=== PATIENT | female | born 1955 | race Caucasian/White ===

== ENCOUNTER 2023-09-08 08:03 | Outpatient (CLI) | payer MEDICARE, SELFPAY ==
--- NOTE | ~2023-09-08 | XR_ITS ---
Clinical Indication: COPD, chest pain PA and lateral views of the chest: Comparison: None Findings: The lungs are clear, without evidence of focal consolidation or pleural effusion. Cardiome diastinal silhouette is within normal limits. Bones and soft tissues are unremarkable. Impression: Normal chest. Reviewed, dictated and finalized at [facility]. Impression: Normal chest.
[2023-09-08 08:49] LABS: Basophils Absolute Auto 0.1 K/mm3 (0.0-0.1); Basophils Percent Auto 0.9 % (0.2-1.2); Eosinophils Absolute Auto 0.2 K/mm3 (0-0.3); Eosinophils Percent Auto 2.7 % (0-4.4); Hematocrit 43.6 % (37.0-47.0); Hemoglobin 13.6 g/dL (12.0-15.0); Immature Granulocyte Absolute 0.02 K/mm3 (0.00-0.031); Immature Granulocyte Percent A 0.3 % (0-0.5); Lymphocytes Absolute Auto 1.92 K/mm3 (0.9-3.2); Lymphocytes Percent Auto 28.9 % (18.3-44.2); Mean Corpuscular HGB Conc 31.2 g/dl (32-36); Mean Corpuscular Hemoglobin 26.5 pg (26-34); Mean Corpuscular Volume 84.8 fl (80-100); Mean Platelet Volume 11.8 fl (7.4-10.4); Monocytes Absolute Auto 0.5 K/mm3 (0.1-0.6); Monocytes Percent Auto 7.7 % (2.6-8.5); Neutrophils Percent Auto 59.5 % (45.5-73.1); Platelet Count Result 234 k/mm3 (150-375); Red Blood Count 5.14 M/mm3 (4.2-5.4); Red Cell Distribution Width 13.2 % (11.5-14.5); White Blood Count 6.6 K/mm3 (4.5-10.0)
[2023-09-08 09:14] LABS: Alanine Aminotransferase 16 U/L (6-35); Albumin Level 4.5 g/dL (3.5-5.1); Alkaline Phosphatase 70 U/L (38-126); Anion Gap 8 mmol/L (4-12); Aspartate Amino Transferase 22 U/L (14-36); Bilirubin,Total 0.6 mg/dL (0.2-1.3); Blood Urea Nitrogen 17 mg/dL (7-17); Calcium 9.4 mg/dL (8.4-10.2); Carbon Dioxide 27 mmol/L (22-30); Chloride 107 mmol/L (98-107); Cholesterol 189 mg/dL (0-200); Estimated Glomerular Filt Rate > 60; Glucose 164 mg/dL (65-110); HDL Direct 40 mg/dL; Potassium 4.7 mmol/L (3.4-5.0); Sodium 142 mmol/L (137-145); Triglycerides 199 mg/dL (<150)
[2023-09-08 09:20] LABS: LDL Cholesterol Direct 122 mg/dL
[2023-09-08 09:23] LABS: Vitamin D 25 Hydroxy 23.9 ng/mL
[2023-09-08 10:19] LABS: Folic Acid 15.3 ng/mL (2.76->20)
== END 2023-09-08 08:04 | disposition home or self-care (01) ==
PROVIDERS: PCP Nurse Practitioner Adult Health; Visit Provider Nurse Practitioner Adult Health
DX: J44.9 Chronic obstructive pulmonary disease, unspecified (principal); E78.5 Hyperlipidemia, unspecified; R53.83 Other fatigue
CPT/HCPCS: 36415; 71046; 80053; 80061; 82306; 82607; 82746; 84443; 85025

== ENCOUNTER 2023-09-17 08:40 | Outpatient (CLI) | payer MEDICARE, SELFPAY ==
[2023-09-17 11:00] LABS: Hemoglobin A1C 7.4 % (<5.7)
== END 2023-09-17 08:41 | disposition home or self-care (01) ==
PROVIDERS: PCP Nurse Practitioner Adult Health; Visit Provider Nurse Practitioner Adult Health
DX: R73.9 Hyperglycemia, unspecified (principal)
CPT/HCPCS: 36415; 83036

== ENCOUNTER 2023-11-26 07:28 | Outpatient (CLI) | payer MEDICARE, SELFPAY ==
--- NOTE | 2023-11-26 07:30 | ECHO_ITS ---
Patient Info Name: Ree Jackson Age: 68 years : 1955 Gender: Female Ht: 62 in Wt: 165 lbs BSA: 1.84 m2 HR: 82 bpm BP: 154 / 84 mmHg Technical Quality: Fair Exam Date: 11/26/2023 7:40 AM Exam Location: Echo Lab Patient Status: Outpatient Admit Date: 11/26/2023 Staff Ordering Physician: Shilpa Covarrubias APRN State Archivist: Celeste Garner RDCS Attending Provider: Shilpa Covarrubias APRN Referring Physician: Satish HALL; Exam Type: CA echo doppler color flow Study Info Indications R06.02 - Shortness of breath Complete two-dimensional, color flow and Doppler transthoracic echocardiogram is performed. Summary 1. Complete two-dimensional, color flow and Doppler transthoracic echocardiogram is performed. 2. Left ventricular chamber dimension is normal. 3. Left ventricular systolic function is normal, estimated at 60-65%. 4. The left ventricular diastolic function is grade I diastolic dysfunction. 5. E/e' 17 is elevated. 6. Global longitudinal strain is abnormal at -15.3%. 7. Left atrial chamber dimension is mildly enlarged. 8. There is mild aortic valve sclerosis. 9. There is trace aortic valve regurgitation. 10. There is trace mitral valve regurgitation. 11. No pulmonary hypertension, estimated pulmonary arterial systolic pressure is 29 mmHg. 12. There is trivial pericardial effusion. Left Ventricle E/e' 17 is elevated. Global longitudinal strain is abnormal at -15.3%. Left ventricular chamber dimension is normal. Left ventricular systolic function is normal, estimated at 60-65%. The left ventricular diastolic function is grade I diastolic dysfunction. Right Ventricle Right ventricular systolic function is normal and with normal TAPSE 2.0 cm. Right ventricular chamber dimension is normal. Left Atria Left atrial chamber dimension is mildly enlarged. Right Atria Right atrial chamber dimension is normal. Aortic Valve The aortic valve is trileaflet. There is mild aortic valve sclerosis. There is no aortic valve stenosis. There is trace aortic valve regurgitation. Pulmonic Valve There is no pulmonic regurgitation. Mitral Valve There is no mitral valve stenosis. There is trace mitral valve regurgitation. Tricuspid Valve There is no tricuspid valve regurgitation. No pulmonary hypertension, estimated pulmonary arterial systolic pressure is 29 mmHg. Pericardium/Pleural There is trivial pericardial effusion. Inferior Vena Cava Normal inferior vena cava with >50% collapse upon inspiration consistent with normal right atrial pressure, 5 mmHg. Aorta The aortic root size at the sinus of Valsalva is normal. Left Ventricular Outflow Tract Name Value Normal LVOT 2D LVOT Diameter 2.0 cm LVOT Doppler LVOT Peak Gradient 4 mmHg LVOT Mean Gradient 2 mmHg LVOT VTI 23 cm LVOT VTI/AV VTI Ratio 0.7 LVOT Stroke Volume 73 ml LVOT CO 6.1 l/min LVOT CI 3.3 l/min/m2 Pulmonic Valve Name
--- NOTE | 2023-11-26 07:31 | EST_ITS ---
Patient Info Name: Ree Jackson Age: 68 years : 1955 Gender: Female Ht: 62 in Wt: 165 lbs BSA: 1.84 m2 HR: 81 bpm BP: 165 / 91 mmHg Exam Date: 11/26/2023 8:36 AM Exam Location: Echo Lab Patient Status: Outpatient Admit Date: 11/26/2023 Staff Ordering Physician: Shilpa Covarrubias APRN Attending Provider: Shilpa Covarrubias APRN Exercise Technologist: Willow Gaines [facility] Exercise Physician: Jeff Alvarado DO Exam Type: CA stress test treadmill Study Info A treadmill exercise stress test was performed. Summary 1. 1. Abnormal Johan exercise stress test for ischemic ST changes by ECG criteria. 2. 2. Reduced functional capacity, achieving 7 METs of workload. 3. 3. Baseline hypertension. 4. 4. Appropriate HR response to exercise. 5. 5. Appropriate HR recovery at 1 minute post exercise. 6. 6. No imaging with stress testing. 7. 7. Patient informed of the above results. Protocol: Johan Stress ECG Details Stage: REST Duration (min): 3 min : 21 sec Speed (mph): 0.0 Grade (%): 0 HR (bpm): 82 SBP (mmHg): --- DBP (mmHg): --- METS: --- Stage: REST Duration (min): 7 min : 20 sec Speed (mph): 0.0 Grade (%): 0 HR (bpm): 91 SBP (mmHg): 158 DBP (mmHg): 89 METS: --- Stage: STAGE 1 Duration (min): 1 min : 0 sec Speed (mph): 1.7 Grade (%): 10 HR (bpm): 102 SBP (mmHg): 158 DBP (mmHg): 89 METS: --- Stage: STAGE 1 Duration (min): 2 min : 0 sec Speed (mph): 1.7 Grade (%): 10 HR (bpm): 111 SBP (mmHg): 158 DBP (mmHg): 89 METS: --- Stage: STAGE 1 Duration (min): 3 min : 0 sec Speed (mph): 1.7 Grade (%): 10 HR (bpm): 118 SBP (mmHg): 205 DBP (mmHg): 90 METS: --- Stage: STAGE 2 Duration (min): 1 min : 0 sec Speed (mph): 2.5 Grade (%): 12 HR (bpm): 124 SBP (mmHg): 205 DBP (mmHg): 90 METS: --- Stage: STAGE 2 Duration (min): 2 min : 0 sec Speed (mph): 2.5 Grade (%): 12 HR (bpm): 129 SBP (mmHg): 174 DBP (mmHg): 85 METS: --- Stage: STAGE 2 Duration (min): 3 min : 0 sec Speed (mph): 2.5 Grade (%): 12 HR (bpm): 129 SBP (mmHg): 174 DBP (mmHg): 85 METS: --- Stage: STAGE 3 Duration (min): 0 min : 1 sec Speed (mph): 3.4 Grade (%): 14 HR (bpm): 129 SBP (mmHg): 174 DBP (mmHg): 85 METS: --- Stage: RECOVERY Duration (min): 0 min : 58 sec Speed (mph): 0.0 Grade (%): 0 HR (bpm): 122 SBP (mmHg): 167 DBP (mmHg): 72 METS: --- Stage: RECOVERY Duration (min): 1 min : 58 sec Speed (mph): 0.0 Grade (%): 0 HR (bpm): 107 SBP (mmHg): 167 DBP (mmHg): 72 METS: --- Stage: RECOVERY Duration (min): 2 min : 58 sec Speed (mph): 0.0 Grade (%): 0 HR (bpm): 100 SBP (mmHg): 184 DBP (mmHg): 78 METS: --- Stage: RECOVERY Duration (min): 3 min : 32 sec Speed (mph): 0.0 Grade (%): 0 HR (bpm): 94 SBP (mmHg): 184 DBP (mmHg): 78 METS: --- Rest HR:
--- NOTE | 2023-11-26 07:32 | ECG_ITS ---
Test Date: 2023-11-26 07:52:53 Measurements Intervals [place] Rate: 84 P: 38 NE: 187 QRS: 37 QRSD: 80 T: 53 QT: 381 QTc: 452 Interpretive Statements SINUS RHYTHM NONSPECIFIC T-WAVE ABNORMALITY BORDERLINE ECG No previous ECG available for comparison Electronically Signed On 11-26-2023 14:59:27 CDT by Malcolm Gonzalez M.D.
== END 2023-11-26 07:29 | disposition home or self-care (01) ==
LOC: ANHCARD 07:29
PROVIDERS: PCP Nurse Practitioner Adult Health; Visit Provider Nurse Practitioner Adult Health
DX: E78.5 Hyperlipidemia, unspecified (principal); R06.02 Shortness of breath; R07.89 Other chest pain; R94.31 Abnormal electrocardiogram [ECG] [EKG]
CPT/HCPCS: 93005; 93017; 93306

== ENCOUNTER 2023-12-30 09:00 | Outpatient (CLI) | payer MEDICARE, SELFPAY ==
--- NOTE | ~2023-12-30 | US_ITS ---
EXAMINATION: US arterial ankle brachial ind DATE: 12/30/2023 09:50 INDICATION: Peripheral vascular disease with claudication TECHNIQUE: Segmental pressures and plethysmographic and Doppler waveforms of the brachial and lower e xtremity arteries were obtained. COMPARISON: None. FINDINGS: Right and left brachial artery pressures of 137 mm Hg and 137 mm Hg, respectively, are concordant (no rmal difference <= 30 mmHg). The right ankle-brachial index (CHERYL) is 1.22 (normal >= 0.9-1.0). The right great toe-brachial index (TBI) is 0.64 (normal >= 0.65). Arterial Doppler waveforms are biphasic with brisk systolic upstrokes at both right posterior tibial and dorsalis pedis arteries. The left CHERYL is 1.14. The left TBI is 0.61. Arterial Doppler waveforms are biphasic with brisk systol ic upstrokes at both left posterior tibial and dorsalis pedis arteries. IMPRESSION: 1. Mild arterial occlusive disease to bilateral lower limbs with normal bilateral ABIs but mildly dec reased bilateral TBIs. Reviewed, dictated and finalized at location B. IMPRESSION: 1. Mild arterial occlusive disease to bilateral lower limbs with normal bilater al ABIs but mildly decreased bilateral TBIs.
--- NOTE | ~2023-12-30 | CT_ITS ---
EXAMINATION:CT lung screening DATE: 12/30/2023 09:49 INDICATION: Personal history of nicotine dependence. 60 pack year history. TECHNIQUE: Computed tomography (CT) of the chest was performed without intravenous contrast. Automate d exposure control and iterative reconstruction technique were employed. The dose-length product (DLP ) was 128.72 mGy-cm. COMPARISON: None. FINDINGS: The lungs demonstrate mild atelectasis. There are a few pulmonary nodules measuring up to 5 mm. There are juxtapleural nodules in left lung measuring up to 9 mm. No pleural effusion. The heart size is normal. There are coronary artery calcifications. No pericardial effusion. There is severe c ervical spondylosis and moderate thoracic spondylosis. IMPRESSION: 1. Lung-RADS category 2: Benign appearance or behavior. Continue annual screening with noncontrast lo w-dose chest CT in 12 months. Reviewed, dictated and finalized at location A. IMPRESSION: 1. Lung-RADS category 2: Benign appearance or behavior. Continue annual screeni ng with noncontrast low-dose chest CT in 12 months.
== END 2023-12-30 09:01 | disposition home or self-care (01) ==
PROVIDERS: PCP Nurse Practitioner Adult Health; Visit Provider Nurse Practitioner Adult Health
DX: Z87.891 Personal history of nicotine dependence (principal); I73.9 Peripheral vascular disease, unspecified; M79.661 Pain in right lower leg; M79.662 Pain in left lower leg; R20.0 Anesthesia of skin; R23.0 Cyanosis; R78.5 Finding of other psychotropic drug in blood; Z12.2 Encounter for screening for malignant neoplasm of respiratory organs
CPT/HCPCS: 71271; 93922

== ENCOUNTER 2024-01-17 00:22 | Day surgery (SDC) | payer MEDICARE, SELFPAY ==
[2024-01-14 14:30] VITALS: BMI 30.4
[2024-01-17] VITALS (17 sets, daily range): BP systolic 140–172; BP diastolic 57–123; PULSE 74–90; RESP 13–20; TEMP 36.5; O2SAT 94–99; BMI 29.9
[2024-01-17 07:41] LABS: Basophils Absolute Auto 0.1 K/mm3 (0.0-0.1); Basophils Percent Auto 0.8 % (0.2-1.2); Eosinophils Absolute Auto 0.2 K/mm3 (0-0.3); Eosinophils Percent Auto 2.6 % (0-4.4); Hematocrit 41.2 % (37.0-47.0); Hemoglobin 13.3 g/dL (12.0-15.0); Immature Granulocyte Absolute 0.05 K/mm3 (0.00-0.031); Immature Granulocyte Percent A 0.6 % (0-0.5); Lymphocytes Percent Auto 23.3 % (18.3-44.2); Mean Corpuscular HGB Conc 32.3 g/dl (32-36); Mean Corpuscular Hemoglobin 27.6 pg (26-34); Mean Corpuscular Volume 85.5 fl (80-100); Mean Platelet Volume 11.5 fl (7.4-10.4); Monocytes Absolute Auto 0.6 K/mm3 (0.1-0.6); Monocytes Percent Auto 7.8 % (2.6-8.5); Neutrophils Percent Auto 64.9 % (45.5-73.1); Platelet Count Result 225 k/mm3 (150-375); Red Blood Count 4.82 M/mm3 (4.2-5.4); White Blood Count 7.7 K/mm3 (4.5-10.0)
[2024-01-17 07:50] LABS: Anion Gap 11 mmol/L (4-12); Blood Urea Nitrogen 20 mg/dL (7-17); Calcium 9.4 mg/dL (8.4-10.2); Carbon Dioxide 25 mmol/L (22-30); Chloride 106 mmol/L (98-107); Estimated CRCL calculation 73 ml/min; Estimated Glomerular Filt Rate > 60; Glucose 141 mg/dL (65-110); Sodium 142 mmol/L (137-145)
--- NOTE | 2024-01-17 08:32 | WPDMODSED ---
Moderate Sedation Note-Pt Data Patient Data Allergies Allergy/AdvReac Type Severity Reaction Status Date / Time acetaminophen Allergy Unknown Unknown Verified 01/12/24 12:58 [From Darvocet-N] codeine Allergy Unknown Unknown Verified 01/12/24 12:58 pentazocine [From Talwin] Allergy Unknown Unknown Verified 01/12/24 12:58 propoxyphene Allergy Unknown Unknown Verified 01/12/24 12:58 [From Darvocet-N] Home Medications Medication Instructions Recorded Confirmed Type albuterol sulfate 90 mcg/actuation 2 inh inhalation Q4-6H PRN 09/01/23 01/14/24 History aerosol inhaler (Ventolin HFA) Shortness Of Breath lovastatin 40 mg tablet 40 mg PO DAILY #90 tabs 09/01/23 01/14/24 Rx montelukast 10 mg tablet 10 mg PO DAILY #90 tabs 09/01/23 01/14/24 Rx blood-glucose meter (Blood Glucose #1 ea 09/20/23 12/16/23 Rx Monitoring kit) blood sugar diagnostic (Blood #50 ea 09/22/23 12/16/23 Rx Glucose Test strips) lancets #100 ea 09/22/23 12/16/23 Rx aspirin 81 mg tablet,delayed 81 mg PO DAILY 12/16/23 01/14/24 History release lansoprazole 15 mg capsule,delayed 15 mg PO BID 01/12/24 01/14/24 History release magnesium 400 mg PO DAILY 01/12/24 01/14/24 History bupropion HCl 300 mg 24 hr tablet, 300 mg PO DAILY 01/14/24 01/14/24 History extended release metformin 500 mg tablet,extended 500 mg PO DAILY 01/14/24 01/14/24 History release 24 hr Current Medications: Active Medications Sodium Chloride (Normal Saline Iv) 500 mls @ 100 mls/hr IV CONT .Q5H KIMBERLY Sedation/Anesthesia: No previous sedation/anesthesia problems (including family history). [facility] Past Medical History Medical History (Updated 01/12/24 @ 13:19 by Shilpa Covarrubias APRN) Allergies Arthritis Asthma COPD (chronic obstructive pulmonary disease) Headache Migraine Family History Family History Father Asthma Lung cancer History of ETOH abuse Depression Mother Diabetes mellitus Hypertension Heart disease Rectal cancer Sibling History of ETOH abuse Diabetes mellitus Hypertension Social History Social History Smoking packs per day: 1 Smoking cigarettes per day: 20.0 Years smoked: 30 Smoking pack-years: 30.00 Smoking status: Former smoker Smoking end date: 04/19/03 Alcohol intake: former Alcohol use details: Wine Social Substance use: never Substance use type: does not use Do You Feel Safe in your Home?: Yes Lack of Transportation: No Lack of Food: Never True Current Housing: I Have Housing Concerned About Future Housing: No Difficulty Paying Gas/Electric Bills: No Difficulty Paying for Meds: No Currently Unemployed: No Education: High School Diploma/GED Difficulty w/ Childcare or Family Care: No Living arrangements: alone Occupation/Education: retired Gender identity (if verbalized by the patient): Female Spiritual care concerns: No Agree to blood products: Yes Mod Sed Physical Exam Physical Exam Pre Procedural Exam: Normal: Appearance, Airway, Lungs and Heart Rate Hours since solid foods: 12 Hours since liquid intake: 8 Mallampati Classification: class III Internal Medicine - PN: Obj Da Vital Signs Vital Signs: Vital Signs - 24 hr 01/17/24 07:32 Temperature 36.5 C Pulse Rate 84 Respiratory Rate 14 Blood Pressure 169/79 H Pulse Oximetry 97 Oxygen Delivery Room Air Meds/Results Medications: Active Medications Generic Name Dose Route Start Last Admin Trade Name Freq PRN Reason Stop Dose Admin Sodium Chloride 500 mls @ 100 mls/hr 01/17/24 07:00 Normal Saline Iv IV CONT .Q5H KIMBERLY Labs 01/17/24 07:28 01/17/24 07:28 Labs: Laboratory Results - last 24 hr 01/17/24 07:28 WBC 7.7 RBC 4.82 Hgb 13.3 Hct 41.2 MCV 85.5 MCH 27.6 MCHC 32.3 RDW 14.0 Plt Count 225 MPV 11.5 H
--- NOTE | 2024-01-17 08:32 | WPDCARDPROC ---
Cardiac Cath Procedure Note Date of procedure:: 01/17/24 Performing physician:: CATHETERIZATION LABORATORY REPORT Procedure Date: 01/16/2026 Referring Physician: Dr. Alvarado Anesthesia: Versed and Fentanyl were ordered and given in my presence at 857am, procedure ended at 946am. Supervision of nurse monitored moderate sedation with 2mg Versed and 100mcg Fentanyl was provided for 49 minutes. Pre-op Diagnosis: abnormal stress test Post-op Diagnosis: abnormal stress test Procedure(s): Left heart catheterization with coronary angiography Access Site: Right radial artery. Hemostasis with TR band Brief History and Clinical Indications: 68 yo woman with DM type 2, HLD, and early family history of CAD with intermittent chest pain found to have abnormal stress test now here for [facility]. All risks, benefits and alternatives to left heart catheterization with or without percutaneous coronary intervention was discussed at length with the patient. Risk of complications including but not limited to bleeding, infection, arrhythmia, stroke, worsening kidney function, blood loss, groin hematoma, limb loss, emergency coronary artery bypass grafting, and even were discussed with the patient and all questions were answered. The patient understood and wished to proceed. Time out called, patient name, date of , medical record number, allergies, procedure performed, identify Canopy Stringer, patient and staff member concurred with accurate data, procedure carried on. Findings: LEFT HEART CATHETERIZATION FINDINGS: 1. Left main: The left main coronary artery is widely patent without any significant obstructive disease. 2. Left anterior descending: The LAD provides 2 main diagonal branches that have mild luminal irregularities without any significant obstructive angiographic disease. The LAD wraps around the apex and distally, there is diffuse 50-60% stenosis 3. Left circumflex: The left circumflex artery provides 2 OM branches. OM1 has a 90% stenosis in its proximal body. OM2 has a 70% stenosis in its proximal to mid body. 4. Right coronary artery: The RCA has a subtotal occlusion in it's mid-body. It has left to right collaterals. The RCA is the dominant vessel. 5. Left ventricle: A. End-diastolic pressure 2 mmHg. B. LV gram deferred. C. No significant gradient across aortic valve on catheter pullback. Description of Procedure: Informed consent signed and placed in the chart. Patient transferred to school laboratory technician room. Prepped and draped in usual sterile fashion. 2% lidocaine injected subcutaneously in right wrist area. 22-gauge venipuncture catheter used to access the right radial artery with the Seldinger technique. 6-FR slender sheath placed in right radial artery. 200 mcg Nitroglycerin, 2mg Verapamil, 5000U heparin was given intraarterial through the sheath. J wire advanced under fluoroscopy 5Fr JL3.5 diagnostic catheter engaged Left Main Coronary Artery. 5Fr TIG diagnostic catheter engaged Right Coronary Artery Multiple orthogonal angiogram obtained and reviewed 5Fr Pigtail diagnostic catheter crossed aortic valve to obtain LVEDP, LV angiogram deferred. Procedure Description for PCI: Heparin was used for anticoagulation (ACT maintained above 250) Patient loaded with heparin at 70 units/kg. 6Fr CLS 3.0 Guide Catheter was used to engage the LMCA. 0.014 Samurai coronary wire was passed in to OM2 The lesion was pre-dilated with a 2.0 x 15 mm balloon inflated to nominal pressures A 2.5 mm x 34mm Jose Caldwell HUEY was successfully deployed into OM2 at 14atm The Samurai coronary wire was then passed into OM1 and the lesion was pre-dilated with a 2.5 x 10mm balloon inflated to 10atm A 2.5 x 15mm Jose Caldwell HUEY was successfully deployed into OM1 at 14atm Intracoronary NTG was administered Follow-up angiograms showed an excellent result Coronary wire and guide-catheter were removed Pre-procedure - ELISEO 3 flow Post-procedure - ELISEO 3 flow No
[2024-01-17 11:45] LABS: Activated Clotting Time 226 SEC (74-137)
[2024-01-17 11:45] LABS: Activated Clotting Time 263 SEC (74-137)
== END 2024-01-17 14:27 | disposition home or self-care (01) ==
PROVIDERS: PCP Nurse Practitioner Adult Health; Visit Provider Internal Medicine
PROC: 4A023N7 Measurement of Cardiac Sampling and Pressure, Left Heart, Percutaneous Approach (ICD-10-PCS; CPT 93452; principal; 2024-01-17 08:30)
PROC: (CPT 92928; 2024-01-17 08:30)
DX: I25.10 Atherosclerotic heart disease of native coronary artery without angina pectoris (principal); R94.39 Abnormal result of other cardiovascular function study; E11.9 Type 2 diabetes mellitus without complications; E78.5 Hyperlipidemia, unspecified; J44.9 Chronic obstructive pulmonary disease, unspecified; Z79.51 Long term (current) use of inhaled steroids; Z79.82 Long term (current) use of aspirin; Z79.84 Long term (current) use of oral hypoglycemic drugs; Z87.891 Personal history of nicotine dependence
CPT/HCPCS: 36415; 80048; 85025; 93458; A9270; C1725; C1769; C1874; C1887; C1894; C9600; C9601; J1644; J2250; J2305; J3010; J7040

== ENCOUNTER 2024-01-22 18:38 | Observation (INO) | payer MEDICARE, SELFPAY ==
[2024-01-22] VITALS (9 sets, daily range): BP systolic 135–140; BP diastolic 67–74; PULSE 94–105; RESP 16–19; TEMP 36.5–36.8; O2SAT 96–98; BMI 29.5
--- NOTE | ~2024-01-22 | XR_ITS ---
EXAMINATION: XR chest 2V Exam Date/Time: 01/22/2024 19:14 CDT HISTORY: cp Comparison: 09/08/2023. RESULT: Lines, tubes, and devices: None. Lungs and pleura: Clear. Cardiomediastinal silhouette: Stable. Other: No acute osseous or upper abdominal finding. IMPRESSION: No acute cardiopulmonary process. Reviewed, dictated and finalized at location K.
--- NOTE | 2024-01-22 18:39 | ECG_ITS ---
Test Date: 2024-01-22 18:51:46 Measurements Intervals [place] Rate: 100 P: 43 FL: 167 QRS: 29 QRSD: 92 T: 73 QT: 364 QTc: 470 Interpretive Statements SINUS TACHYCARDIA POSSIBLE LEFT ATRIAL ENLARGEMENT [-0.1mV P WAVE IN V1/V2] NONSPECIFIC ST & T-WAVE ABNORMALITY ABNORMAL RHYTHM ECG Compared to ECG 11/26/2023 07:52:53 Sinus rhythm no longer present T-wave abnormality still present Electronically Signed On 01-23-2024 11:31:24 CDT by Germán Navarro M.D.
[2024-01-22 19:03] LABS: Basophils Percent Auto 0.3 % (0.2-1.2); Eosinophils Absolute Auto 0.1 K/mm3 (0-0.3); Hematocrit 43.7 % (37.0-47.0); Hemoglobin 14.4 g/dL (12.0-15.0); Immature Granulocyte Absolute 0.07 K/mm3 (0.00-0.031); Immature Granulocyte Percent A 0.5 % (0-0.5); Lymphocytes Absolute Auto 1.98 K/mm3 (0.9-3.2); Lymphocytes Percent Auto 14.4 % (18.3-44.2); Mean Corpuscular Hemoglobin 27.7 pg (26-34); Mean Corpuscular Volume 84.2 fl (80-100); Mean Platelet Volume 12.3 fl (7.4-10.4); Monocytes Absolute Auto 0.9 K/mm3 (0.1-0.6); Monocytes Percent Auto 6.3 % (2.6-8.5); Neutrophils Absolute Auto 10.7 K/mm3 (1.3-6.7); Neutrophils Percent Auto 77.5 % (45.5-73.1); Platelet Count Result 269 k/mm3 (150-375); Red Blood Count 5.19 M/mm3 (4.2-5.4); Red Cell Distribution Width 13.5 % (11.5-14.5); White Blood Count 13.8 K/mm3 (4.5-10.0)
--- NOTE | 2024-01-22 19:03 | ED.CHESTPAIN ---
HPI - Chest Pain General Chief Complaint: Chest Pain Stated Complaint: chest pain Time Seen by Provider: 01/22/24 18:49 History of Present Illness HPI narrative: Patient presents here with chest pain that started today, with some slight nausea, initially thought it was heartburn but did not get better after her medications. Had recent catheterization done several days ago, saw her senior functional analyst yesterday and was started on losartan, and started having chest pain today. Related Data Home Medications Medication Instructions Recorded Confirmed albuterol sulfate 90 mcg/actuation 2 inh inhalation Q4-6H PRN 09/01/23 01/21/24 aerosol inhaler (Ventolin HFA) Shortness Of Breath aspirin 81 mg tablet,delayed 81 mg PO DAILY 12/16/23 01/21/24 release lansoprazole 15 mg capsule,delayed 15 mg PO BID 01/12/24 01/21/24 release magnesium 400 mg PO DAILY 01/12/24 01/21/24 bupropion HCl 300 mg 24 hr tablet, 300 mg PO DAILY 01/14/24 01/21/24 extended release metformin 500 mg tablet,extended 500 mg PO DAILY 01/14/24 01/21/24 release 24 hr Allergies Allergy/AdvReac Type Severity Reaction Status Date / Time acetaminophen Allergy Unknown Unknown Verified 01/21/24 09:35 [From Darvocet-N] codeine Allergy Unknown Unknown Verified 01/21/24 09:35 pentazocine [From Talwin] Allergy Unknown Unknown Verified 01/21/24 09:35 propoxyphene Allergy Unknown Unknown Verified 01/21/24 09:35 [From Darvocet-N] [facility] Past Medical History Medical History (Updated 01/22/24 @ 19:44 by Aretha Rebollar MD) Allergies Arthritis Asthma COPD (chronic obstructive pulmonary disease) Headache Migraine Family History Family History Father Asthma Lung cancer History of ETOH abuse Depression Mother Diabetes mellitus Hypertension Heart disease Rectal cancer Sibling History of ETOH abuse Diabetes mellitus Hypertension Social History Social History Smoking packs per day: 1 Smoking cigarettes per day: 20.0 Years smoked: 30 Smoking pack-years: 30.00 Smoking status: Former smoker Smoking end date: 01/01/04 Alcohol intake: former Alcohol use details: Wine Social Substance use: never Substance use type: does not use Do You Feel Safe in your Home?: Yes Lack of Transportation: No Lack of Food: Never True Current Housing: I Have Housing Concerned About Future Housing: No Difficulty Paying Gas/Electric Bills: No Difficulty Paying for Meds: No Currently Unemployed: No Education: High School Diploma/GED Difficulty w/ Childcare or Family Care: No Living arrangements: alone Occupation/Education: retired Gender identity (if verbalized by the patient): Female Spiritual care concerns: No Agree to blood products: Yes Exam Narrative: EXAMINATION OF ORGAN SYSTEMS/BODY AREAS: Constitutional: Vital signs per nursing GENERAL: Appears slightly anxious HEAD: Normal with no signs of head trauma. EYES: EOMI, conjunctiva normal ENT: Hearing grossly intact LUNGS: Nonlabored breathing. HEART: Slightly tachycardic, normal radial and DP pulses ABD: [Soft], [nontender to palpation] EXT: Normal range of motion SKIN: [No rashes or lesions.] NEURO: [Alert and oriented x 3. No gross focal sensory or strength deficits.] PSYCH: Slightly anxious affect Course Vital Signs Vital signs: Vital Signs Temperature 98.2 F 01/22/24 19:09 Pulse Rate 102 H 01/22/24 19:09 Respiratory Rate 19 01/22/24 19:09 Blood Pressure 137/67 01/22/24 19:09 Pulse Oximetry 97 01/22/24 19:09 Oxygen Delivery Room Air 01/22/24 19:09 Fraction of Inspired Oxygen 97 01/22/24 19:09 Temperature 98.2 F 01/22/24 19:09 Pulse Rate 102 H 01/22/24 19:09 Respiratory Rate 19 01/22/24 19:09 Blood Pressure 137/67 01/22/24 19:09 Pulse Oximetry 97 01/22/24 19:09 Oxygen Delivery
[2024-01-22 19:14] LABS: Prothrombin Time 13.6 Seconds (11.1-14.7)
[2024-01-22 19:15] LABS: Partial Thromboplastin Time 24.9 Seconds (22.3-36.8)
[2024-01-22] MEDS: LORazepam INJ (*CRX) 2 MG/ML VIAL 0.5 MG IV PUSH (19:30)
[2024-01-22] MEDS: ASPIRIN 81 MG CHEWABLE TABLET 243 MG PO (19:32)
--- NOTE | 2024-01-22 19:43 | PM.IMHP ---
H&P: HPI History of Present Illness Date/Time: 01/22/24 19:43 Chief Complaint: Chest pain Narrative: This is a 68-year-old female with past medical history significant for coronary artery disease, type diabetes mellitus, COPD. patient presents to the emergency room due to retrosternal chest pain with lightheadedness, dizziness, rates the pain at 3/10 in intensity at the time of my visit it is nonradiating. Patient denies any fevers, chills, nausea, vomiting, body aches and pains, palpitations. States that pain started the night before after she took her losartan. preliminary workup was significant for troponin of 2.7/2.77 x2 EXAMINATION: XR chest 2V Exam Date/Time: 01/22/2024 19:14 CDT HISTORY: cp Comparison: 09/08/2023. RESULT: Lines, tubes, and devices: None. Lungs and pleura: Clear. Cardiomediastinal silhouette: Stable. Other: No acute osseous or upper abdominal finding. IMPRESSION: No acute cardiopulmonary process. EKG Rate 100 OK 167 QRSd 92 QT 364 QTc 470 --[place]-- P 43 QRS 29 T 73 SINUS TACHYCARDIA POSSIBLE LEFT ATRIAL ENLARGEMENT [-0.1mV P WAVE IN V1/V2] NONSPECIFIC ST & T-WAVE ABNORMALITY ABNORMAL RHYTHM ECG Compared to ECG 11/26/2023 07:52:53 Sinus rhythm no longer present T-wave abnormality still present [facility] Past Medical History Medical History (Updated 01/22/24 @ 19:44 by Aretha Rebollar MD) Allergies Arthritis Asthma COPD (chronic obstructive pulmonary disease) Headache Migraine Family History Family History Father Depression Lung cancer History of ETOH abuse Asthma Mother Alzheimer dementia Rectal cancer Diabetes mellitus Heart disease Hypertension Sibling Diabetes mellitus History of ETOH abuse Hypertension Sibling Heart disease Hx of CABG Brother Sibling Stented coronary artery x9 stents. Heart disease Brother Social History Social History Smoking packs per day: 1 Smoking cigarettes per day: 20.0 Years smoked: 30 Smoking pack-years: 30.00 Smoking status: Former smoker Smoking end date: 04/19/03 Alcohol intake: former Alcohol use details: Wine Social Substance use: never Substance use type: does not use Do You Feel Safe in your Home?: Yes Lack of Transportation: No Lack of Food: Never True Current Housing: I Have Housing Concerned About Future Housing: No Difficulty Paying Gas/Electric Bills: No Difficulty Paying for Meds: No Currently Unemployed: No Education: High School Diploma/GED Difficulty w/ Childcare or Family Care: No Living arrangements: alone Occupation/Education: retired Gender identity (if verbalized by the patient): Female Spiritual care concerns: No Agree to blood products: Yes Meds Home Medications and Allergies Home Medications Medication Instructions Recorded Confirmed Type albuterol sulfate 90 mcg/actuation 2 inh inhalation Q4-6H PRN 09/01/23 01/22/24 History aerosol inhaler (Ventolin HFA) Shortness Of Breath blood-glucose meter (Blood Glucose #1 ea 09/20/23 01/22/24 Rx Monitoring kit) blood sugar diagnostic (Blood #50 ea 09/22/23 01/22/24 Rx Glucose Test strips) lancets #100 ea 09/22/23 01/22/24 Rx aspirin 81 mg tablet,delayed 81 mg PO DAILY 12/16/23 01/22/24 History release lansoprazole 15 mg capsule,delayed 15 mg PO BID 01/12/24 01/22/24 History release magnesium 400 mg PO DAILY 01/12/24 01/22/24 History bupropion HCl 300 mg 24 hr tablet, 300 mg PO DAILY 01/14/24 01/22/24 History extended release metformin 500 mg tablet,extended 500 mg PO HS 01/14/24 01/22/24 History release 24 hr clopidogrel 75 mg tablet 75 mg PO DAILY #90 tabs 01/17/24 01/22/24 Rx Tumeric 1,500 mg PO DAILY 01/22/24 01/22/24 History losartan 25 mg tablet 25 mg PO 01/22/24 01/22/24
[2024-01-22 19:55] LABS: Alanine Aminotransferase 17 U/L (6-35); Albumin Level 4.2 g/dL (3.5-5.1); Alkaline Phosphatase 57 U/L (38-126); Anion Gap 10 mmol/L (4-12); Aspartate Amino Transferase 52 U/L (14-36); Bilirubin,Total 0.4 mg/dL (0.2-1.3); Blood Urea Nitrogen 16 mg/dL (7-17); Calcium 9.1 mg/dL (8.4-10.2); Carbon Dioxide 24 mmol/L (22-30); Chloride 102 mmol/L (98-107); Estimated Glomerular Filt Rate > 60; Glucose 239 mg/dL (65-110); Lipase 73 U/L (23-300); Potassium 3.9 mmol/L (3.4-5.0); Sodium 136 mmol/L (137-145)
--- NOTE | 2024-01-22 20:56 | PC.NURSE ---
pepcid not stocked in the pyxis at time of medication due. called IMU to call report. Nurse unavailable to take report, let them know that the patient was coming up and if they had any questions to call the ER with them.
--- NOTE | 2024-01-22 21:45 | ADMGEN ---
This patient, Ree Jackson, was admitted to IMU Room 211-01 on 01/22/24 at 2106. Patient/family oriented to hospital policies and general routines including ID bracelet, bed and alarms, visiting hours, pain management, procedures, bathroom and other care routines, personal items, smoking policy, room service/diet, and visiting hours. Information on how to activate the Rapid Response Team has been discussed. Patient/Family are encouraged to report perceived risks to care and to ask questions if they do not understand what they are told or what they should do.
[2024-01-22] MEDS: FAMOTIDINE 20 MG/2 ML VIAL IV PUSH (22:16)
[2024-01-22 23:32] LABS: Basophils Absolute Auto 0.1 K/mm3 (0.0-0.1); Basophils Percent Auto 0.5 % (0.2-1.2); Eosinophils Absolute Auto 0.1 K/mm3 (0-0.3); Hematocrit 41.8 % (37.0-47.0); Hemoglobin 13.4 g/dL (12.0-15.0); Immature Granulocyte Absolute 0.03 K/mm3 (0.00-0.031); Immature Granulocyte Percent A 0.3 % (0-0.5); Lymphocytes Absolute Auto 2.06 K/mm3 (0.9-3.2); Lymphocytes Percent Auto 20.9 % (18.3-44.2); Mean Corpuscular HGB Conc 32.1 g/dl (32-36); Mean Corpuscular Hemoglobin 27.1 pg (26-34); Mean Corpuscular Volume 84.6 fl (80-100); Mean Platelet Volume 11.7 fl (7.4-10.4); Monocytes Absolute Auto 0.8 K/mm3 (0.1-0.6); Monocytes Percent Auto 8.1 % (2.6-8.5); Neutrophils Absolute Auto 6.8 K/mm3 (1.3-6.7); Neutrophils Percent Auto 69.2 % (45.5-73.1); Platelet Count Result 235 k/mm3 (150-375); Red Blood Count 4.94 M/mm3 (4.2-5.4); Red Cell Distribution Width 13.7 % (11.5-14.5); White Blood Count 9.9 K/mm3 (4.5-10.0)
[2024-01-22] MEDS: LOSARTAN POTASSIUM 25 MG TABLET PO (23:32)
[2024-01-22] MEDS: MONTELUKAST SODIUM 10 MG TABLET PO (23:32)
[2024-01-22] MEDS: LOVASTATIN 20 MG TABLET 40 MG PO (23:33)
[2024-01-22] MEDS: HEPARIN SOD/D5W 100 UNITS/ML 25,000 UNITS/250 ML BAG 7 UNITS IV CONT (23:40)
[2024-01-22 23:43] LABS: Prothrombin Time 13.9 Seconds (11.1-14.7)
[2024-01-22 23:44] LABS: Partial Thromboplastin Time 25.2 Seconds (22.3-36.8)
[2024-01-23] VITALS (24 sets, daily range): BP systolic 99–135; BP diastolic 49–68; PULSE 80–93; RESP 14–19; TEMP 36.3–37; O2SAT 96–100
--- NOTE | 2024-01-23 04:58 | ECG_ITS ---
Test Date: 2024-01-23 05:05:39 Measurements Intervals [place] Rate: 88 P: 44 MD: 183 QRS: 37 QRSD: 84 T: 61 QT: 380 QTc: 461 Interpretive Statements SINUS RHYTHM POSSIBLE LEFT ATRIAL ENLARGEMENT [-0.1mV P WAVE IN V1/V2] NONSPECIFIC T-WAVE ABNORMALITY Compared to ECG 01/22/2024 18:51:46 Sinus tachycardia no longer present T-wave abnormality still present Electronically Signed On 01-23-2024 11:34:54 CDT by Germán Navarro M.D.
[2024-01-23] MEDS: NITROGLYCERIN SL 0.4 MG TABLET SUBLINGUAL (05:32)
[2024-01-23 05:43] LABS: Basophils Absolute Auto 0.1 K/mm3 (0.0-0.1); Basophils Percent Auto 0.5 % (0.2-1.2); Eosinophils Absolute Auto 0.1 K/mm3 (0-0.3); Eosinophils Percent Auto 1.2 % (0-4.4); Hematocrit 40.7 % (37.0-47.0); Hemoglobin 13.1 g/dL (12.0-15.0); Immature Granulocyte Absolute 0.05 K/mm3 (0.00-0.031); Immature Granulocyte Percent A 0.5 % (0-0.5); Lymphocytes Absolute Auto 1.54 K/mm3 (0.9-3.2); Lymphocytes Percent Auto 16.5 % (18.3-44.2); Mean Corpuscular HGB Conc 32.2 g/dl (32-36); Mean Corpuscular Hemoglobin 27.8 pg (26-34); Mean Corpuscular Volume 86.4 fl (80-100); Mean Platelet Volume 11.9 fl (7.4-10.4); Monocytes Absolute Auto 0.8 K/mm3 (0.1-0.6); Monocytes Percent Auto 8.1 % (2.6-8.5); Neutrophils Absolute Auto 6.8 K/mm3 (1.3-6.7); Neutrophils Percent Auto 73.2 % (45.5-73.1); Platelet Count Result 231 k/mm3 (150-375); Red Blood Count 4.71 M/mm3 (4.2-5.4); Red Cell Distribution Width 13.6 % (11.5-14.5); White Blood Count 9.3 K/mm3 (4.5-10.0)
[2024-01-23 05:51] LABS: Partial Thromboplastin Time 31.5 Seconds (22.3-36.8)
--- NOTE | 2024-01-23 06:02 | PC.NURSE ---
01/23/24 at 0452- Pt has C/O 4/10 intermittent midsternal chest pressure radiating into her right jaw with no other associated Sx's. VSS: HR-84, RR-18, SPO2-97%, BP-135/68. Pt states that she was not doing anything to precipitate the event prior to the start of the chest pressure. Stat EKG ordered and obtained. EKG placed in Pt's chart. 0530- Pt states that the pain has eased up some and is intermittent in nature, ranging pain a 3/10. 0532- x1 dose of SL NTG tablet given to the patient as per orders. 0536-Pt states that her midsternal chest pressure has completely resolved after the NTG. VS remain stable. HR-92, RR-20, SPO2-98%, BP-127/63. Pt instructed to notify staff of any returning or ongoing chest pain. 0550-Dr. Alvarado notified and updated with the patient's condition and interventions completed. No further orders received at this time. Dr. Alvarado states that he will be here to see the patient in the AM.
[2024-01-23] MEDS: HEPARIN SODIUM 5,000 UNITS/ML VIAL 4000 UNITS IV PUSH ×2 (06:52→13:22)
--- NOTE | 2024-01-23 07:09 | PM.CNCAR ---
Assessment and Plan Assessment and plan (1) Chest pain: Code(s): R07.9 - Chest pain, unspecified Status: Acute Assessment and Plan: Probably due to RCA subtotal with left to right collaterals. EKG does not show significant ST changes. On heparin drip, continue for next 24 hours since troponin stuttering. Start antianginals including Isosorbide mononitrate 30 mg daily, Metoprolol Succinate 25 mg daily. If troponin trending down by tomorrow and cp improved then will d/c home. If recurrent cp on antianginals then will refer to tertiary center for high risk PCI of RCA. (2) Elevated troponin: Code(s): R79.89 - Other specified abnormal findings of blood chemistry Status: Acute Assessment and Plan: Initial troponin 2.70, then 2.77, the 2.69. This could be due to 2 stents placed in OM1 and OM2 on 01/17/24. (3) CAD (coronary artery disease): Code(s): I25.10 - Atherosclerotic heart disease of [place] coronary artery without angina pectoris Status: Acute Assessment and Plan: Continue dual antiplatelets. (4) Hypertension: Code(s): I10 - Essential (primary) hypertension Status: Acute Assessment and Plan: Stable. Monitor BP with new medication. (5) Dyslipidemia: Code(s): E78.5 - Hyperlipidemia, unspecified Status: Acute Assessment and Plan: On Lovastatin. History of Present Illness History of Present Illness Consult date/time: 01/23/24 07:09 Reason For Visit: chest pain, +trop Narrative: 68 yr old woman who is my regular cardiology patient presents to ER with chest pain. She is a patient of Shilpa Covarrubias. She has a history of CAD, DM, dyslipidemia, COPD, anxiety, former remote smoking, family history of a brother with CABG and another brother with CAD with stents. She reports mid chest pressure radiating to her back and jaw intermittently. [place] night before it was 8/10 and she took NTG and it took pain away, so she decided to come to ER. Early this morning pain was 4/10, and NTG SL took pain away. She is able to walk 2 blocks prior to [place]. Denies orthopnea, PND, edema, dizziness, palpitations. Cardiovascular Procedures Business Office Associate:: 01/17/24 [facility] with Dr. Lima: LAD diffuse 50-60%, LCx OM1 90% prox, OM2 70% prox-mid ,RCA mid subtotal occlusion with left to right collaterals; PCI to OM1 and OM2. Echo/MUGA:: 11/26/23 Echo: EF 60-65%, grade I diastolic dysfunction (E/e' 17), mild LAE, trace AI/MR, trace pericardial effusion. Electrophysiology:: 11/26/23 EKG: Sinus rhythm, borderline T wave abnormality. Stress Tests:: 11/26/23 Stress test: Abnormal with 1-[address] depression in leads V4-V6 and inferior leads; exercised for 6 minutes. Review of Systems Review of Systems: All systems reviewed & are unremarkable except as noted in HPI and below Constitutional: Constitutional: Reports as per HPI, Denies chills and Denies fever(s) Cardiovascular: Cardiovascular: Reports as per HPI and Reports chest pain Respiratory: Respiratory: Reports as per HPI and Denies dyspnea Gastrointestinal: Gastrointestinal: Reports as per HPI and Denies abdominal pain Genitourinary: Genitourinary: Reports as per HPI and Denies dysuria Musculoskeletal: Musculoskeletal: Reports as per HPI Neurologic: Reports as per HPI, Denies dizziness and Denies syncope [facility] Past Medical History Medical History (Updated 01/22/24 @ 19:44 by Aretha Rebollar MD) Allergies Arthritis Asthma COPD (chronic obstructive pulmonary disease) Headache Migraine Family History Family History Father Depression Lung cancer History of ETOH abuse Asthma Mother Alzheimer dementia Rectal cancer Diabetes mellitus Heart disease Hypertension Sibling Diabetes mellitus History of ETOH abuse Hypertension Sibling Heart disease Hx of CABG Brother Sibling Stented coronary artery
[2024-01-23 07:44] LABS: Glucose Point of Care 151 mg/dl (65-105)
[2024-01-23] MEDS: ASPIRIN 81 MG ENTERIC TABLET PO (08:13)
[2024-01-23] MEDS: CLOPIDOGREL BISULFATE 75 MG TABLET PO (08:14)
[2024-01-23] MEDS: METOPROLOL SUCCINATE EXT REL 25 MG TABCR PO (08:14)
[2024-01-23] MEDS: PANTOPRAZOLE 40 MG TABLET PO ×2 (08:14→17:18)
[2024-01-23] MEDS: buPROPion HCL XL (24 HR) 150 MG TABCR 300 MG PO (08:14)
[2024-01-23] MEDS: ISOSORBIDE MONONITRATE 30 MG TAB.ER.24H PO (08:28)
[2024-01-23 11:25] LABS: Glucose Point of Care 226 mg/dl (65-105)
--- NOTE | 2024-01-23 11:27 | PM.IMPN ---
Progress Note: A&P Assessment and Plan (1) Elevated troponin: Code(s): R79.89 - Other specified abnormal findings of blood chemistry Status: Acute (2) Hypertension: Code(s): I10 - Essential (primary) hypertension Status: Acute (3) CAD (coronary artery disease): Code(s): I25.10 - Atherosclerotic heart disease of [place] coronary artery without angina pectoris Status: Acute (4) Chest pain: Code(s): R07.9 - Chest pain, unspecified Status: Acute (5) Diabetes mellitus: Code(s): E11.9 - Type 2 diabetes mellitus without complications Status: Acute (6) COPD (chronic obstructive pulmonary disease): Code(s): J44.9 - Chronic obstructive pulmonary disease, unspecified Status: Acute (7) Asthma: Code(s): J45.909 - Unspecified asthma, uncomplicated Status: Acute Plan This is a 68-year-old female who presented to the ER with chest pain slight nausea. She recently had a catheterization done/ with PCI of OM1 and OM2 vessels with HUEY. OM1 had 90% stenosis wound to 70% stenosis. RCA has subtotal occlusion in the mid body with [id number] collaterals. In the ED her vitals were stable. EKG showed sinus tachycardia with some Q-waves in inferior leads which were present previously. S x-ray with no acute abnormality. Troponin came back elevated at 2.7 WBC count 13.8 hemoglobin 14 hematocrit 43 platelet count 269. She has been started on heparin drip. Troponin trended. 2.7-2.7 7-2.69. Cardiology consulted. Continue to trend troponin. Anti angina he holman isosorbide mononitrate started. He attempted to high-risk PCI RCA still persistent. Hyperlipidemia: On lovastatin Hypertension: Home medication DVT prophylax on heparin drip Subjective Date/time seen: 01/23/24 11:27 Interval history: No overnight events. No further chest pain denies any shortness of breath. Review of Systems Review of Systems: All systems reviewed & are unremarkable except as noted in HPI and below Exam Narrative: GENERAL: The patient is well developed, not in acute distress HEENT: Nonicteric sclerae, PERRLA, EOMI. Oropharynx clear. Moist mucous membranes. Conjunctivae appear well perfused. CHEST: Chest wall is nontender. HEART: Regular rate and rhythm without murmur, rubs, or gallops LUNGS: Clear to auscultation bilaterally. no respiratory distress ABDOMEN: Soft, positive bowel sounds, non-tender, no organomegaly. SKIN: No rash, no excessive bruising, petechiae, or purpura. NEUROLOGIC: Cranial nerves II-XII intact, alert and oriented x 3, no gross motor deficits EXTREMITIES: no edema, cyanosis or clubbing Objective Data Vital Signs Vital Signs: Vital Signs - 24 hr 01/22/24 19:09 01/22/24 19:09 01/22/24 21:01 Temperature 98.2 F Pulse Rate 102 H 101 H Respiratory Rate 19 18 Blood Pressure 137/67 137/71 Pulse Oximetry 97 97 Oxygen Delivery Room Air Room Air Oxygen Flow Rate Fraction of Inspired Oxygen 97 01/22/24 20:00 01/22/24 19:00 01/22/24 21:22 Temperature 97.7 F Pulse Rate 105 H 105 H 102 H Respiratory Rate 18 19 18 Blood Pressure 135/74 137/67 140/72 Pulse Oximetry 96 98 97 Oxygen Delivery Oxygen Flow Rate Fraction of Inspired Oxygen 01/23/24 00:01 01/22/24 21:21 01/22/24 22:00 Temperature 97.7 F Pulse Rate 93 99 103 H Respiratory Rate 18 Blood Pressure 118/61 Pulse Oximetry 96 Oxygen Delivery Oxygen Flow Rate Fraction of Inspired Oxygen 01/23/24 00:00 01/23/24 02:00 01/23/24 00:00 Temperature Pulse Rate 92 84 93 Respiratory Rate 18 Blood Pressure Pulse Oximetry 96 Oxygen Delivery Nasal Cannula Oxygen Flow Rate 4 Fraction of Inspired Oxygen 01/22/24 21:15 01/22/24 23:20 01/23/24 05:13 Temperature 97.4 F L Pulse Rate 102 H 94 84 Respiratory Rate 18 16 18 Blood Pressure 135/68 Pulse Oximetry 97 98 97 Oxygen Delivery Room Air Nasal Cannula Oxygen Flow Rat
[2024-01-23] MEDS: INSULIN ASPART (*BKC) 100 UNITS/ML SUB-Q (11:54)
[2024-01-23 13:11] LABS: Partial Thromboplastin Time 46.7 Seconds (22.3-36.8)
--- NOTE | 2024-01-23 15:25 | PC.NURSE ---
Reviewed and acknowledge charting rByan Lawton [facility]
[2024-01-23 17:00] LABS: Glucose Point of Care 127 mg/dl (65-105)
[2024-01-23 19:25] LABS: Partial Thromboplastin Time 83.4 Seconds (22.3-36.8)
[2024-01-23 20:28] LABS: Glucose Point of Care 156 mg/dl (65-105)
[2024-01-23] MEDS: LOSARTAN POTASSIUM 25 MG TABLET PO (21:38)
[2024-01-23] MEDS: MONTELUKAST SODIUM 10 MG TABLET PO (21:38)
[2024-01-23] MEDS: LOVASTATIN 20 MG TABLET 40 MG PO (21:38)
[2024-01-23] MEDS: ACETAMINOPHEN 325 MG TABLET 650 MG PO (21:39)
[2024-01-24] VITALS (10 sets, daily range): BP systolic 107–123; BP diastolic 56–60; PULSE 76–88; RESP 16–20; TEMP 36.3–36.8; O2SAT 96–100; BMI 28.8
[2024-01-24 01:21] LABS: Partial Thromboplastin Time 70.1 Seconds (22.3-36.8)
[2024-01-24] MEDS: HEPARIN SOD/D5W 100 UNITS/ML 25,000 UNITS/250 ML BAG 11 UNITS IV CONT (01:33)
[2024-01-24] MEDS: HEPARIN SODIUM 5,000 UNITS/ML VIAL 2500 UNITS IV PUSH (01:34)
[2024-01-24 05:21] LABS: Basophils Absolute Auto 0.1 K/mm3 (0.0-0.1); Basophils Percent Auto 0.7 % (0.2-1.2); Eosinophils Absolute Auto 0.2 K/mm3 (0-0.3); Eosinophils Percent Auto 1.5 % (0-4.4); Hematocrit 38.3 % (37.0-47.0); Hemoglobin 12.2 g/dL (12.0-15.0); Immature Granulocyte Absolute 0.05 K/mm3 (0.00-0.031); Immature Granulocyte Percent A 0.5 % (0-0.5); Lymphocytes Absolute Auto 2.19 K/mm3 (0.9-3.2); Mean Corpuscular HGB Conc 31.9 g/dl (32-36); Mean Corpuscular Hemoglobin 27.2 pg (26-34); Mean Corpuscular Volume 85.5 fl (80-100); Mean Platelet Volume 11.8 fl (7.4-10.4); Monocytes Absolute Auto 0.9 K/mm3 (0.1-0.6); Neutrophils Absolute Auto 6.6 K/mm3 (1.3-6.7); Neutrophils Percent Auto 66.3 % (45.5-73.1); Platelet Count Result 207 k/mm3 (150-375); Red Blood Count 4.48 M/mm3 (4.2-5.4); Red Cell Distribution Width 13.5 % (11.5-14.5)
[2024-01-24 05:36] LABS: Alanine Aminotransferase 13 U/L (6-35); Albumin Level 3.9 g/dL (3.5-5.1); Alkaline Phosphatase 63 U/L (38-126); Anion Gap 8 mmol/L (4-12); Aspartate Amino Transferase 27 U/L (14-36); Bilirubin,Total 0.6 mg/dL (0.2-1.3); Blood Urea Nitrogen 16 mg/dL (7-17); Calcium 9.1 mg/dL (8.4-10.2); Carbon Dioxide 25 mmol/L (22-30); Chloride 103 mmol/L (98-107); Estimated CRCL calculation 62 ml/min; Estimated Glomerular Filt Rate > 60; Glucose 141 mg/dL (65-110); Magnesium 2.1 mg/dL (1.6-2.3); Potassium 4.2 mmol/L (3.4-5.0); Sodium 136 mmol/L (137-145)
[2024-01-24 06:39] LABS: Glucose Point of Care 145 mg/dl (65-105)
--- NOTE | 2024-01-24 07:47 | PM.PNCARD ---
Progress Note: A&P Assessment and Plan (1) Chest pain: Code(s): R07.9 - Chest pain, unspecified Status: Acute Assessment and Plan: Probably due to RCA subtotal with left to right collaterals. EKG does not show significant ST changes. On heparin drip since troponin stuttering. Started antianginals including Isosorbide mononitrate 30 mg daily, Metoprolol Succinate 25 mg daily. Check troponin level which is pending, and if level is lower then may stop heparin drip and d/c home from cardiology standpoint. Have her f/u with me in 2 weeks. If recurrent cp on antianginals then will refer to tertiary center for high risk PCI of RCA. (2) Elevated troponin: Code(s): R79.89 - Other specified abnormal findings of blood chemistry Status: Acute Assessment and Plan: Initial troponin 2.70, then 2.77, the 2.69. This could be due to 2 stents placed in OM1 and OM2 on 01/17/24. (3) CAD (coronary artery disease): Code(s): I25.10 - Atherosclerotic heart disease of [place] coronary artery without angina pectoris Status: Acute Assessment and Plan: Continue dual antiplatelets. (4) Hypertension: Code(s): I10 - Essential (primary) hypertension Status: Acute Assessment and Plan: Stable. Monitor BP with new medication. (5) Dyslipidemia: Code(s): E78.5 - Hyperlipidemia, unspecified Status: Acute Assessment and Plan: On Lovastatin. Subjective Date/time seen: 01/24/24 07:47 Interval history: Denies any more chest pain. No sob. Exam Const: General: cooperative, healthy appearing and comfortable Orientation/consciousness: oriented to person, oriented to place and oriented to time Resp: Auscultation: clear to auscultation bilaterally, no crackles, no rales, no rhonchi and no wheezes Cardio: Rate: regular rate Rhythm: regular rhythm Heart sounds: no murmurs Peripheral pulses: dorsalis pedis present Neuro: General: oriented to person, oriented to place and oriented to time Extrem: Right lower extremity: no edema Left lower extremity: no edema Objective Data Vital Signs Vital Signs: Vital Signs - 24 hr 01/23/24 08:14 01/23/24 08:37 01/23/24 08:00 Temperature Pulse Rate 92 92 Respiratory Rate 18 Blood Pressure 129/65 Pulse Oximetry 98 98 Oxygen Delivery Nasal Cannula Oxygen Flow Rate 4 01/23/24 08:00 01/23/24 10:00 01/23/24 11:41 Temperature 98 F Pulse Rate 90 88 88 Respiratory Rate 19 Blood Pressure 107/54 L Pulse Oximetry 100 Oxygen Delivery Oxygen Flow Rate 01/23/24 12:00 01/23/24 12:00 01/23/24 13:20 Temperature Pulse Rate 90 Respiratory Rate 18 Blood Pressure Pulse Oximetry 97 99 Oxygen Delivery Nasal Cannula Nasal Cannula Oxygen Flow Rate 4 2 01/23/24 13:28 01/23/24 14:00 01/23/24 16:00 Temperature Pulse Rate 80 Respiratory Rate Blood Pressure Pulse Oximetry 98 99 Oxygen Delivery Room Air Room Air Oxygen Flow Rate 01/23/24 16:00 01/23/24 16:00 01/23/24 18:00 Temperature 98.0 F Pulse Rate 88 88 88 Respiratory Rate 14 Blood Pressure 105/55 L Pulse Oximetry 96 Oxygen Delivery Oxygen Flow Rate 01/23/24 19:59 01/23/24 23:47 01/23/24 20:00 Temperature 98.6 F 98.1 F Pulse Rate 88 82 88 Respiratory Rate 16 16 16 Blood Pressure 124/63 99/49 L Pulse Oximetry 97 96 97 Oxygen Delivery Room Air Oxygen Flow Rate 01/24/24 00:00 01/23/24 20:00 01/23/24 22:00 Temperature Pulse Rate 82 93 88 Respiratory Rate 16 Blood Pressure Pulse Oximetry 96 Oxygen Delivery Room Air Oxygen Flow Rate 01/24/24 00:00 01/24/24 02:00 01/24/24 04:24 Temperature 98.1 F Pulse Rate 77 81 81 Respiratory Rate 16 Blood Pressure 119/58 L Pulse Oximetry 96 Oxygen Delivery Oxygen Flow Rate 01/24/24 04:00 01/24/24 04:00 01/24/24 06:00 Temperature Pulse Rate 81 76 87 Respiratory Rate 16 Blood Press
[2024-01-24] MEDS: METOPROLOL SUCCINATE EXT REL 25 MG TABCR PO (08:00)
[2024-01-24] MEDS: buPROPion HCL XL (24 HR) 150 MG TABCR 300 MG PO (08:00)
[2024-01-24] MEDS: CLOPIDOGREL BISULFATE 75 MG TABLET PO (08:01)
[2024-01-24] MEDS: PANTOPRAZOLE 40 MG TABLET PO (08:01)
[2024-01-24] MEDS: ISOSORBIDE MONONITRATE 30 MG TAB.ER.24H PO (08:01)
[2024-01-24] MEDS: ASPIRIN 81 MG ENTERIC TABLET PO (08:01)
[2024-01-24 08:56] LABS: Partial Thromboplastin Time 104.9 Seconds (22.3-36.8)
[2024-01-24 11:35] LABS: Glucose Point of Care 119 mg/dl (65-105)
--- NOTE | 2024-01-24 11:58 | PM.DS ---
DS: Admitting Diagnosis Discharge Date 01/24/2024 Admitting Diagnosis Chest pain DS: Discharge Diagnosis Discharge Diagnosis (1) Elevated troponin: Code(s): R79.89 - Other specified abnormal findings of blood chemistry Status: Acute (2) Hypertension: Code(s): I10 - Essential (primary) hypertension Status: Acute (3) CAD (coronary artery disease): Code(s): I25.10 - Atherosclerotic heart disease of [place] coronary artery without angina pectoris Status: Acute (4) Chest pain: Code(s): R07.9 - Chest pain, unspecified Status: Acute (5) Diabetes mellitus: Code(s): E11.9 - Type 2 diabetes mellitus without complications Status: Acute (6) COPD (chronic obstructive pulmonary disease): Code(s): J44.9 - Chronic obstructive pulmonary disease, unspecified Status: Acute (7) Asthma: Code(s): J45.909 - Unspecified asthma, uncomplicated Status: Acute DS: Summary Hospital Course Hospital Course: This is a 68-year-old female who presented to the ER with chest pain slight nausea. She recently had a catheterization done/ with PCI of OM1 and OM2 vessels with HUEY. OM1 had 90% stenosis wound to 70% stenosis. RCA has subtotal occlusion in the mid body with [id number] collaterals. In the ED her vitals were stable. EKG showed sinus tachycardia with some Q-waves in inferior leads which were present previously. S x-ray with no acute abnormality. Troponin came back elevated at 2.7 WBC count 13.8 hemoglobin 14 hematocrit 43 platelet count 269. She has been started on heparin drip. Troponin trended. 2.7-2.7 7-2.69. Cardiology consulted. Continue to trend troponin and trended down. Antianginal medication with isosorbide mononitrate and metoprolol started. He attempted to high-risk PCI RCA still persistent. Hyperlipidemia: On lovastatin Hypertension: Home medications DVT prophylax on heparin drip Time Spent with Patient Time attestation: Total time spent providing and/or coordinating discharge services: 35 mins Exam Narrative: GENERAL: The patient is well developed, not in acute distress HEENT: Nonicteric sclerae, PERRLA, EOMI. Oropharynx clear. Moist mucous membranes. Conjunctivae appear well perfused. CHEST: Chest wall is nontender. HEART: Regular rate and rhythm without murmur, rubs, or gallops LUNGS: Clear to auscultation bilaterally. no respiratory distress ABDOMEN: Soft, positive bowel sounds, non-tender, no organomegaly. SKIN: No rash, no excessive bruising, petechiae, or purpura. NEUROLOGIC: Cranial nerves II-XII intact, alert and oriented x 3, no gross motor deficits EXTREMITIES: no edema, cyanosis or clubbing DS: Data Data Completed and Pending Labs on day of discharge: Labs from last 24 hours 01/24/24 01/24/24 01/24/24 11:23 07:30 06:37 WBC RBC Hgb Hct MCV MCH MCHC RDW Plt Count MPV Immature Gran % (Auto) Neut % (Auto) Lymph % (Auto) [place] % (Auto) Eos % (Auto) Baso % (Auto) Lymph # (Auto) [place] # (Auto) Eos # (Auto) Baso # (Auto) Abs Immat Gran (auto) Absolute Neuts (auto) Absolute Nucleated RBC Nucleated RBC % APTT 104.9 H Sodium Potassium Chloride Carbon Dioxide Anion Gap BUN Creatinine Estim Creat Clear Calc Estimated GFR Glucose POC Capillary Glucose 119 H 145 H Calcium Magnesium Total Bilirubin AST ALT Alkaline Phosphatase Troponin I Total Protein Albumin 01/24/24 01/24/24 01/23/24 05:14 01:05 19:57 WBC 10.0 RBC 4.48 Hgb 12.2 Hct 38.3 MCV 85.5 MCH 27.2 MCHC 31.9 L RDW 13.5 Plt Count 207 MPV 11.8 H Immature Gran % (Auto) 0.5 Neut % (Auto) 66.3 Lymph % (Auto) 22.0 [place] % (Auto) 9.0 H Eos % (Auto) 1.5 Baso % (Auto) 0.7 Lymph # (Auto) 2.19 [place] # (Auto) 0.9 H Eos # (Auto) 0.2 Baso # (Auto
== END 2024-01-24 12:56 | disposition home or self-care (01) ==
LOC: ANHED 19:49 → ANHIMU 23:19
PROVIDERS: Internal Medicine Cardiovascular Disease; Preventive Medicine Aerospace Medicine; Admitting Provider Internal Medicine; Emergency Provider Emergency Medicine; PCP Nurse Practitioner Adult Health; Visit Provider Internal Medicine
DX: R07.9 Chest pain, unspecified (principal); R79.89 Other specified abnormal findings of blood chemistry; I25.10 Atherosclerotic heart disease of native coronary artery without angina pectoris; E78.5 Hyperlipidemia, unspecified; E11.9 Type 2 diabetes mellitus without complications; J44.9 Chronic obstructive pulmonary disease, unspecified; Z79.51 Long term (current) use of inhaled steroids; Z79.82 Long term (current) use of aspirin; Z79.84 Long term (current) use of oral hypoglycemic drugs; Z87.891 Personal history of nicotine dependence; Z79.02 Long term (current) use of antithrombotics/antiplatelets
CPT/HCPCS: 36415; 71046; 80053; 82948; 83690; 83735; 84484; 85025; 85610; 85730; 93005; 96365; 96366; 96374; 96375; 99285; A9270; G0378; J1644; J1815; J2060

== ENCOUNTER 2024-02-28 14:11 | Outpatient (CLI) | payer MEDICARE, SELFPAY ==
--- NOTE | ~2024-02-28 | MM_ITS ---
EXAMINATION: MM screening florecita BI w kemi HISTORY: Screening mammogram TECHNIQUE: Craniocaudal and mediolateral oblique 3-D tomosynthesis images were obtained and synthetic 2-D images were generated. CAD analysis was submitted and interpreted. COMPARISON: No prior mammogram is available for comparison at this institution. BREAST PARENCHYMAL COMPOSITION:Not Dense. There are scattered areas of fibroglandular density. FINDINGS: No suspicious mass, calcification, or architectural distortion are identified in either paul ast to suggest malignancy. There has been no suspicious interval change. IMPRESSION: No mammographic evidence of malignancy. Recommend routine screening mammography in one year. BI-RADS Category 1: Negative Reviewed, dictated and finalized at location . [employer]
== END 2024-02-28 14:12 | disposition home or self-care (01) ==
LOC: ANHIMG 14:14
PROVIDERS: PCP Nurse Practitioner Adult Health; Visit Provider Nurse Practitioner Adult Health
DX: Z12.31 Encounter for screening mammogram for malignant neoplasm of breast (principal)
CPT/HCPCS: 77063; 77067

== ENCOUNTER 2024-07-12 09:11 | Outpatient (CLI) | payer MEDICARE, SELFPAY ==
--- OUTSIDE RECORDS SUMMARY | 2024-07-12 09:48 | XMS_ITS | Referral Summary ---
[facility] Organization [facility] Address [address] [place] [address] Care Team Providers Care Elevator Constructor Hydraulic Name Role Phone Jesus Navarro MD Primary Care Provider [phone] Allergies Active Allergy Reactions Criticality Noted Date Comments Codeine Urticaria Medium 10/30/2010 Pentazocine Urticaria Medium 10/30/2010 Propoxyphene Swelling Medium 10/30/2010 Medications lovastatin (MEVACOR) 40 mg tablet Take 40 mg by mouth. Active aspirin 81 mg tablet Take 81 mg by mouth daily. Active DULoxetine DR (CYMBALTA) 60 mg capsule Take 60 mg by mouth daily. Active lansoprazole (PREVACID) 15 mg capsuleIndicati ons:before a meal Take 15 mg by mouth 2 (two) times a day. Active turmeric root extract 500 mg capsule Take 500 mg by mouth 2 (two) times a day. Active magnesium oxide 500 mg capsule Take 500 mg by mouth 2 (two) times a day. Active nortriptyline (PAMELOR) 50 mg capsule Take 1 capsule (50 mg total) by mouth nightly. 60 capsule 11 04/04/2018 Active Active Problems Problem Noted Date Diagnosed Date Vertigo 04/04/2018 Assessment & Plan (04/04/2018 3:23 PM SORT LINE): The patient is a 62-year-old female who complains of vertigo with head or eye movement. Her MRI has been unremarkable. I am going to send her for vestibular testing. We will refer her to the [facility] physical therapy department for vestibular testing and potentially vestibular rehabilitation. I will see her back in 2 months. I was with the patient for over 30 minutes and spent >50% of the visit reviewing pertinent test results with the patient, counseling them on medication management options and lifestyle changes that could benefit symptoms, answering their questions, and discussing follow-up planning BAPTISTE (dyspnea on exertion) 03/08/2018 Chest tightness 03/08/2018 Mixed hyperlipidemia 03/08/2018 Family history of coronary artery disease 2017 Chronic tension-type headache, intractable 02/02 Assessment & Plan (04/04/2018 3:21 PM SORT LINE): We discussed today that she persists in having headaches. When increase her nortriptyline to 50 mg at bedtime. We discussed side effect profile. Assessment & Plan (03/02/2018 4:41 PM SORT LINE): At this time the patient is broken the rebound cycle and is taking nortriptyline at bedtime with some benefit. She has had no adverse effects from the medications on going increase it to 50 mg at bedtime. We may consider titrating up further depending on her response. We discussed the side effect profile today again. With regard to the small vessel disease noted on MRI, we had ordered a sed rate and CRP to be done last appointment. She has not had that done so she can have that done this afternoon. I will contact her with results. I will see her back in 4 weeks. I was with the patient for over 30 minutes and spent >50% of the visit reviewing pertinent test results with the patient, counseling them on medication management options and lifestyle changes that could benefit symptoms, answering their questions, and discussing follow-up planning Assessment & Plan (02/02/2018 3:25 PM CDT): The patient is 62-year-old female who has chronic daily headaches that are tension type. 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 I recommended she discontinue all analgesics for the next few weeks while we put her on a short burst of prednisone to break the headache cycle. We discussed the pathophysiology of this. We also discussed, as an aside, her aspirin dosage. The patient does have small vessel disease on the MRI. I think aspirin is warranted empiric therapy, but recent data suggests that she should be taking more than 81 mg. I recommended she take 162 mg of aspirin daily. We also discussed checking a sedimentation rate and a CRP to rule out the possibility of a vasculitis. With regard to the lightheadedness, she does not have evidence on neurologic exam of cerebellar dysfunction. I suspect this was metabolic or possibly above blood pressure related issue. As it is getting better I am not going to refer her to Cardiology for further cardiac workup at this point. She certainly has no evidence of large vessel stenosis on the MRI that we reviewed today. I will see her back in a few weeks to follow up on her headache. Mild intermittent asthma Social History Tobacco Use Types Packs/Day Years Used Date Smoking Tobacco: Former Smokeless Tobacco: Never Alcohol Use Standard Drinks/Week Comments Yes 0 (1 standard drink = 0.6 oz pur e alcohol) Rarely Personal Safety Answer Date Recorded Getting School Help Needed Not on file 04/01 Comments Unknown Sex and Gender Information Value Date Recorded Sex Assigned at Not on file Legal Sex Female 5:05 PM SORT LINE Gender Identity Not on file Sexual Orientation Not on file Last Filed Vital Signs Vital Sign Reading Time Taken Comments Blood Pressure 122/82 04/04/2018 2:58 PM SORT LINE Pulse 106 04/04/2018 2:58 PM SORT LINE Temperature - - Respiratory Rate 16 04/04/2018 2:58 PM SORT LINE Oxygen Saturation - - Inhaled Oxygen Concentration - - Weight 75.8 kg (167 lb) 04/04/2018 2:58 PM SORT LINE Height 157.5 cm (5' 2 ) 04/04/2018 2:58 PM SORT LINE Body Mass Index 30.54 04/04/2018 2:58 PM SORT LINE Plan of Treatment Not on file Insurance [facility] [place] [id number] [facility] [place] [id number] Care Teams Elevator Constructor Hydraulic Relationship Specialty [place] [id number] [address] PCP - General Internal Medicine 04/17/21
--- OUTSIDE RECORDS SUMMARY | 2024-07-12 09:48 | XMS_ITS | Continuity of Care Document ---
Author Organization [facility] Address [address] [place] [address] Phone Care Team Providers Care Load Tester Name Role Phone Jolanta Massey Unavailable Unavailable [...] Diagnoses Date Provider Providers Copied on Encounter [facility], [address], [place], [place], [address] , [place] tel: [phone] [facility] No Information 4 Alfonzo Stover. [address], [address], [place], [place], [address], [place]. tel:[phone] [facility], [address], [place], [place], [address] , [place] tel: [phone] [facility] No Information 3 Ramon Lee. [address] [place] [address], [address] , [place], [place], [address], . tel:[phone] PREVENTATIVE -EST: 65 & OVER [facility], [address], [place], [place], [address] , tel:[phone] [facility] preventive exam (chief complaint)C hronic [...] adultChest pressureOther fatigueElevated glucose 3 Alfonzo Stover. [address] [place] [address], [address] , [place], [place], [address], . tel:[phone] Referring Provider: Jesus Navarro, [address] [place] [address] [address] , [place], [address] . tel:[phone] PREVENTATIVE -EST: [address] [facility], [address], [place], [place], [address] , tel:[phone] [facility] Chronic Conditions (chief complaint) Encounter for annual health examinationObesit y (BMI 30.0-34.9)Hyperli pidemia, unspecified hyperlipidemia typeMild intermittent asthma, unspecified whether complicatedChroni c fatigueScreening for breast cancerBody mass index [BMI] 32.0-32.9, adultDyspnea on exertion 1 Ramon Lee. [address] [place] [address], [address] , [place], [place], [address], . tel:[phone] Referring Provider: Jesus Navarro [address] [place] [address] [address] , [place], [address] . tel:[phone] PREVENTATIVE -EST: 40-64 [facility], [address], [place], [place], [address] , tel:[phone] [facility] preventive exam (chief complaint)C hronic Conditions (chief complaint) Body mass index (BMI) 32.0-32.9, adultEncst. rose hospitaler for preventive health examinationMixed hyperlipidemiaGas troesophageal reflux disease without esophagitisMood swingsMigraine without aura and without status migrainosus, not intractableElevat ed glucose level 0 Alfonzo Stover. [address] [facility], [address], [place], [place], [address], [place]. tel:[phone] Referring Provider: Jesus Navarro, [address] [facility] [address], [place], [address] . tel:[phone] [facility], [address], [place], [place], [address] , [place] tel:[phone] [facility] Physical examNeck painElevated BP without diagnosis of hypertension 8 Timothy Patino. [address], [place], [address], [place]. tel:[phone] Referring Provider: Sukumar Aguirre [address] [place] [address], [address] . tel:[phone] [facility], [address], [place], [place], [address] , [place] tel:[phone] [facility] VertigoSOB (shortness of breath) on exertionNonintrac table headache, unspecified chronicity pattern, unspecified headache typeMild depression 8 Timothy Patino. [address], [place], [address], [place]. tel:[phone] Referring Provider: Sukumar Aguirre, [address] [place] [address], [address] . tel:[phone] [facility], [address], [place], [place], [address] , [place] tel:[phone] [facility] Physical examHyperlipidemi a, unspecifiedObesit y, unspecified obesity severity, unspecified obesity typeMigraine, unspecified, not intractable, without status migrainosusMood disorder 7 Aguirre Sukumar. [address], [place], [address], [place]. tel:[phone] Referring Provider: Sukumar Aguirre, [address] [facility], [address] . tel:[phone] [facility], [address], [place], [place], [address] , tel: [phone] [facility] HeadacheDyslipide gaurav 5 Timothy Patino. [address] [facility] [place], [address], [place]. tel:[phone] Referring Provider: Sukumar Aguirre, [address] [place], [address] . tel:[phone] [facility], [address], [place], [place], [address] , [place] tel: [phone] [facility] HeadacheFeverHype rlipidemiaCoughin gMemory lossNausea 5 Timothy Patino. [address], [place], [address], [place]. tel:[phone] Referring Provider: Sukumar Aguirre, [address] [place], [address] . tel:[phone] [facility], [address], [place], [place], [address] , [place] tel: [phone] [facility] Chest pain, atypicalRight hip painHyperlipidemi a 4 Alfonzo Stover. [address], [address], [place], [place], [address], [place]. tel:[phone] Referring Provider: Sukumar Aguirre, [address] [place], [address] . tel:[phone] [facility], [address], [place], [place], [address] , [place] tel: [phone] [facility] Preventative health careHyperlipidemi aMood swingsEsophageal refluxMigraineDys pneaRight hip painRoutine Medical ExamGynecological Examination 3 Alfonzo Stover. [address], [address], [place], [place], [address], [place]. [phone] Referring Provider: Sukumar Aguirre, [address] [place] [address], [place], [address] . tel:[phone] [facility], [address], [place], [place], [address] , [place] tel: [phone] [facility] Other and unspecified hyperlipidemiaOth er specified episodic mood disorderEsophagea l refluxMigraine, unspecified without mention of intractable migraine 3 Alfonzo Stover[address], [address], [place], [place], [address], [place]. tel:[phone] [facility], [address], [place], [place], [address] , [place] tel: [phone] [facility] EPISODIC MOOD DISORD NECESOPHAGEAL REFLUXHYPERLIPIDE GAURAV NEC/NOSLeg cramps 2 No Information [facility], [address], [place], [place], [address] , [place] tel: [phone] [facility] EPISODIC MOOD DISORD NECESOPHAGEAL REFLUXHYPERLIPIDE GAURAV NEC/NOSAtypical neviLeg cramps, sleep relatedChest pain, atypical 2 No Information [facility], [address], [place], [place], [address] , [place] tel: [phone] [facility] Other specified episodic mood disorderOther and unspecified hyperlipidemiaAll ergic rhinitis, cause unspecifiedEsopha geal refluxInsomnia, unspecifiedUnspec ified chest pain 6 1 No Information [facility], [address], [place], [place], [address] , [place] tel: [phone] [facility] NONSPECIF SKIN ERUPT NECHERPES ZOSTER NOS 0200 [address] [facility]. [address], [place], [address], [place]. [facility], [address], [place], [place], [address] , [place] tel: [phone] [facility] LONG-TERM USE MEDS NECCHEST PAIN NOSESOPHAGEAL REFLUXDERMATITIS NOSCOUGH Jun- 8 No Information [facility], [address], [place], [place], [address] , [place] tel: [phone] [facility] HYPERLIPIDEMIA NEC/NOSMALAISE AND FATIGUE NEC 8 Alfonzo Stover. [address], [address], [place], [place], [address], [place]. tel:[phone] [facility], [address], [place], [place], [address] , [place] tel: [phone] [facility] EPISODIC MOOD DISORD NEC 4 [facility]. [address], [place], [address], [place]. [facility], [address], [place], [place], [address] , [place] tel: [phone] [facility] DEPRESSIVE DISORDER NEC 4 [facility]. [address], [place], [address], [place]. Family History Family Member Type Diagnosis [...] Unspecified Payers Payer name Insurance type Covered alliance party ID Authoriza tion(s) [facility]CR COMPLETE HMO [id number] Social History Type Description Quantity Date Captured [...] completed Future Order: Lab Order Troponin I ([id number]), Ordered on: Ordered Future Order: Lab Order CBC AUTO DIFF ([id number]), Ordered on: Ordered Future Order: Lab Order Comprehe nsive Metabolic (CMP) ([id number]), Ordered on: Ordered Future Order: Lab Order TSH - Th yroid Stimulating Hormone ([id number]), Ordered on: Ordered History Of Present Illness [...] preventive exam. She is , works for [employer], considering detention early 2023. She no longer smokes, occasionally drinks wine or beer. She had 2 COVID vaccines and one booster. She had flu vaccine earlier this fall. She had Shingrix in the past as well Prevnar 20. [address] sees Dr Radha Wiley at [facility] for well woman exams and has mammograms at [facility]. Her colonoscopy was in 2016.. chronic conditions *See Chronic Conditions [facility] Chronic Conditions *See Chronic Conditions [facility] Chronic Conditions *See Chronic Conditions [facility] Chronic Conditions *See Chronic Conditions [facility] preventive exam Currently pregna nt: no. : [...] a preventive exam. She is works for [employer]. She states she works at home at times, presently is back in the office. She guillermo not smoke, occasionally drinks alcohol. She sees underwriting technician- Dr Wiley' for well woman exams- last [...] preventive exam. She is , works for [employer], considering detention early 2023. She no longer smokes, occasionally drinks wine or beer. She had 2 COVID vaccines and one booster. She had flu vaccine earlier this fall. She had Shingrix in the past as well Prevnar 20. [address] sees Dr Radha Wiley at [facility] for well woman exams and has mammograms at [facility]. Her colonoscopy was in 2015. Related to [...] a preventive exam. She is works for [employer]. She states she works at home at times, presently is back in the office. She guillermo not smoke, occasionally drinks alcohol. She sees underwriting technician- Dr Wiley' for well woman exams- last May 2019. She is due for mammogram. She had colonoscopy in Jan 2016- will have next year. She had flu vaccine, given Simfinit info. Tdap is up to date. Related to Encounter for preventive health examination Noted to have elevat ed glucose on labs, non fasting. Related to Elevated glucose level Continue present jesenia n of care, advise of any changes. Related to Migraine without aura and without status migrainosus, not intractable Continue present jeseina n of care, advise of symptom change. [...]
--- OUTSIDE RECORDS SUMMARY | 2024-07-12 09:48 | XMS_ITS | Clinical Summary ---
Author Organization [facility] Address [address] [facility] [place] [address] Care Team Providers Care Motor Vehicle Parts Interpreter Name Role Phone Jesus Navarro MD Primary Care Provider [phone] Source Comments [facility],non-owned Affiliates and Associated Physician Practices is amultiple site organization consisting of ambulatory clinics and hospital sitesin [place], [place], [place] and [place]. This disclosure is being madepursuant to the Care Everywhere program and may not contain all information available regarding this patient. Last updated 18.[facility] Allergies Active Allergy Reactions Criticality Noted Date Comments Codeine Urticaria 10/30/2010 Propoxyphene N-Apap Urticaria 10/30/2010 Propoxyphene Swelling 10/30/2010 Pentazocine Urticaria 10/30/2010 Medications * Be aware that medications may not be up to date on this document. Alwaysverify current medications with the patient. Medication Sig Dispensed Refills Start Date End Date Status Venlafaxine HCl (EFFEXOR XR PO) Take by mouth. Activ e montelukast (SINGULAIR) 10 MG tablet 12/14/2015 Active naproxen sodium (ALEVE) 220 MG tablet Take 220 mg by mouth 2 times daily Active pantoprazole EC (PROTONIX) 20 MG tablet Take 20 mg by mouth once daily Active DULoxetine (CYMBALTA) 30 MG capsule Take by mouth once daily 06/26/2016 Active lansoprazole (PREVACID) 15 MG capsule Take 15 mg by mouth daily before breakfast Active lovastatin (MEVACOR) 40 MG tablet Take 40 mg by mouth at bedtime Active clobetasol (TEMOVATE) 0.05 % creamIndications:Acut e vulvitis Apply to affected area 2 times daily 60 g 1 2018 Active clobetasol (TEMOVATE) 0.05 % cream Apply to affected area 2 times daily 60 g 5 04/25/2019 Active Active Problems Problem Noted Date Diagnosed Date Acute vulvitis 09/13/2018 Acid reflux 10/30/2010 Family History Medical History Relation Name Comments Diabetes Brother 1 Hypercholesterolemia Brother 2 Migraine Brother 3 Cancer Father lung Cancer Mother rectal cancer Diabetes Mother Hypercholesterolemia Mother Heart Failure Paternal Grandfather Heart Failure Paternal Grandmother Relation Name Status Comments Brother 1 Brother 2 Brother 3 Father Mother Paternal Grandfather Paternal Grandmother Social History Tobacco Use Types Packs/Day Years Used Date Smoking Tobacco: Former Cigarettes Q uit: 04/19/2003 Smokeless Tobacco: Never Alcohol Use Standard Drinks/Week Comments Yes 0 (1 standard drink = 0.6 oz pur e alcohol) social Sex and Gender Information Value Date Recorded Sex Assigned at Not on file Gender Identity Not on file Sexual Orientation Not on file Last Filed Vital Signs Vital Sign Reading Time Taken Comments Blood Pressure 134/86 03/10/2019 9:31 AM SECURITY SITE SUPERVISOR Pulse 86 02/10/2016 9:18 AM CDT Temperature 36.3 C (97.4 F) 02/10/2016 8:59 AM CDT Respiratory Rate 17 02/10/2016 9:18 AM CDT Oxygen Saturation 95% 02/10/2016 9:18 AM CDT Inhaled Oxygen Concentration - - Weight 79.4 kg (175 lb) 03/10/2019 9:31 AM SECURITY SITE SUPERVISOR Height 158.8 cm (5' 2.5 ) 03/10/2019 9:31 AM SECURITY SITE SUPERVISOR Body Mass Index 31.5 03/10/2019 9:31 AM SECURITY SITE SUPERVISOR Plan of Treatment Health Maintenance Due Date Last Done Comments COLOGUARD (AGES 45-75) - COLON CA SCREENING 1955 CT COLONOGRAPHY - COLON CA SCREENING 1955 FIT - COLON CA SCREENING 1955 FLEX SIG - COLON CA SCREENING 1955 HEPATITIS C SCREENING 10/03/1974 DTAP/TDAP/TD VACCINES (1 - Tdap) 10/08/1975 PNEUMOCOCCAL VACCINE 50+ (1 of 1 - PCV) 2006 ZOSTER VACCINE (1 of 2) 2006 SCREENING FOR DIABETES 09/06/2018 MAMMOGRAM 01/18/2020 01/17/2018, 090 08/2016, 12/20/2015, Additional history exists COVID-19 VACCINE (2023- season) 2023 INFLUENZA VACCINE (#1) 2023 DEPRESSION SCREENING 04/19/2024 COLON MONITORING 02/09/2026 02/10/2016, 02/10/2016 COLONOSCOPY - COLON CA SCREENING 02/09/2026 02/10/2016, 02/10/2016 Colorectal Cancer Screening 02/09/2026 Respiratory Syncytial Virus (RSV) Vaccine Pt: or over 60 yrs (1 - 1-dose 75+ series) 10/08/2031 BONE DENSITY TESTING Completed 11/03/2010 HEPATITIS B VACCINE Aged Out No longe r eligible based on patient's age to complete this topic HIB VACCINE Aged Out No longer eligi ble based on patient's age to complete this topic HPV VACCINE Aged Out No longer eligi ble based on patient's age to complete this topic MENINGOCOCCAL (Group B) VACCINE SHARED DECISION-MAKING Aged Out No longer eligible based on patient's age to complete this topic MENINGOCOCCAL GROUPS A/C/Y/W VACCINE Aged Out No longer eligible based on patient's age to complete this topic Procedures Procedure Name Priority Date/Time Associated Diagnosis Comments MAMMO BILAT SCREENING Routine 01/17/2018 12:46 PM CDT Screening mammogram, encounter for ENDOSCOPY, COLON, SCREENING Routine 02/10/2016 8:05 AM CDT DEXA BONE DENSITY 2 SITES Routine 11/03/2010 2:32 PM CDT Ovarian failure from Last 3 Months or Most Recently Relevant to Health Maintenance Results * MAMMO SCREENING DIGITAL IMAGE BILAT G0202 (01/17/2018 12:46 PM CDT) Anatomical Region Laterality Modality Breast Bilateral Mammography 01/17/2018 2:55 PM CDT Narrative 01/17/2018 2:58 PM CDT DIGITAL MAMMOGRAM SCREENING BILATERAL WITH CAD CORRELATION 3-D DIGITAL TOMOSYNTHESIS DATE: 01/17/2018 12:23 PM PREVIOUS EXAM DATE: 12/22/2016 and previous HISTORY: Screening TECHNIQUE: Bilateral breast CC and MLO views. These images were interpreted with the aid of CAD. 3-D Digital Tomosynthesis was performed. TISSUE DENSITY: Scattered fibroglandular densities FINDINGS: Parenchymal pattern is unchanged. No suspicious mass or clustered microcalcification identified. No significant new finding. ASSESSMENT: Negative, BI-RADS 1 RECOMMENDATIONS: Continued annual screening mammography The above findings should be correlated with physical examination. A relatively nonspecific study should not preclude additional evaluation if suspicious findings are present clinically. An [employer] certified facility. [facility] utilize [employer] as a reminder system to notify patients of their next recommended mammograms. Your patient recently completed a breast cancer risk assessment survey. Based on the information provided by your patient, it appears that she may be at increased risk to have a hereditary form of breast cancer. The [employer] recommends MRI screening in addition to mammograms for women who are at increased risk. Therefore, a more detailed risk assessment is recommended. The following options are available: -Consultation with board-certified genetic counselor -Consultation with board-certified surgeon who specializes in breast If you have questions regarding this information or our Cancer Genetics Risk Assessment Program, please do not hesitate to contact us at . [facility] utilizes [employer] as a reminder system to notify patients of their next recommended mammogram. Reading Radiologist: Marcelino Honeycutt MD on 01/17/2018 at 2:58 PM Radha Wiley DO MAMMO ORDERABLES * ENDOSCOPY, COLON, SCREENING (02/10/2016 8:05 AM CDT) Report Endoscopy POC _ Patient Name: Ree Jackson Procedure Date: 02/10/2016 8:05 AM Date of : 1955 Admit Type: Outpatient Age: 60 Gender: Female Attending MD: Morgan Mcafdden MD _ Procedure: Colonoscopy Indications: This is the patient's first colonoscopy, Change in bowel habits Providers: Morgan Mcfadden MD (Doctor) Referring MD: Radha Wiley DO (Referring MD), Jesus Navarro MD (Referring MD) Medicines: Monitored Anesthesia Care Complications: No immediate complications. Estimated blood loss: None. _ Procedure: Pre-Anesthesia Assessment: - Prior to the procedure, a History and Physical was performed, and patient medications and allergies were reviewed. The patient is competent. The risks and benefits of the procedure and the sedation options and risks were discussed with the patient. All questions were answered and informed consent was obtained. Patient identification and proposed procedure were verified by the physician, the nurse and the venetian blind washer in the procedure room. Mental Status Examination: alert and oriented. Airway Examination: normal oropharyngeal airway and neck mobility. Respiratory Examination: clear to auscultation. CV Examination: normal. Prophylactic Antibiotics: The patient does not require prophylactic antibiotics. Prior Anticoagulants: The patient has taken no previous anticoagulant or antiplatelet agents. ASA Grade Assessment: II - A patient with mild systemic disease. After reviewing the risks and benefits, the patient was deemed in satisfactory condition to undergo the procedure. The anesthesia plan was to use monitored anesthesia care (MAC). Immediately prior to administration of medications, the patient was re-assessed for adequacy to receive sedatives. The heart rate, respiratory rate, oxygen saturations, blood pressure, adequacy of pulmonary ventilation, and response to care were monitored throughout the procedure. The physical status of the patient was re-assessed after the procedure. After I obtained informed consent, the scope was passed under direct vision. Throughout the procedure, the patient's blood pressure, pulse, and oxygen saturations were monitored continuously. The Colonoscope was introduced through the anus and advanced to the cecum, identified by appendiceal orifice and ileocecal valve. The colonoscopy was performed without difficulty. The patient tolerated the procedure well. The quality of the bowel preparation was excellent. Findings: The digital rectal exam was normal. Pertinent negatives include no palpable rectal lesions. A 3 mm polyp was found in the rectum. The polyp was flat. The polyp was removed with a cold biopsy forceps. Resection and retrieval were complete. Multiple small and large-mouthed diverticula were found in the sigmoid colon and in the descending colon. The rectum, transverse colon, ascending colon, cecum, appendiceal orifice and ileocecal valve appeared normal. Biopsies were taken with a cold forceps for histology. The terminal ileum appeared normal. _ Impression: - One 3 mm polyp in the rectum. Resected and retrieved. - Diverticulosis in the sigmoid colon and in the descending colon. - The rectum, transverse colon, ascending colon, cecum, appendiceal orifice and ileocecal valve are normal. Biopsied. - The examined portion of the ileum was normal. Recommendation: - Await pathology results. - Repeat colonoscopy in 5 years for surveillance if polyp is adenomatous. - High fiber diet indefinitely. Procedure Code(s): --- Professional --- 09240, Colonoscopy, flexible; with biopsy, single or multiple --- Technical --- 70797, Colonoscopy, flexible; with biopsy, single or multiple Diagnosis Code(s): --- Professional --- K62.1, Rectal polyp R19.4, Change in bowel habit K57.30, Diverticulosis of large intestine without perforation or abscess without bleeding --- Technical --- K62.1, Rectal polyp R19.4, Change in bowel habit K57.30, Diverticulosis of large intestine without perforation or abscess without bleeding CPT copyright 2015 [employer]. All rights reserved. The codes documented in this report are preliminary and upon marine service station attendant review may be revised to meet current compliance requirements. Dr. Morgan Mcfadden MD Morgan Mcfadden MD 02/10/2016 8:53:47 AM This report has been signed electronically. Number of Addenda: 0 Note Initiated On: 02/10/2016 8:05 AM DP ENDOSCOPY 02/10/2016 8:05 AM CDT Morgan Mcfadden MD GI PROCEDURE ORDERA BLES [facility] ENDOSCOPY ERNIE Pardo [id number] * DEXA BONE DENSITY 2 SITES (11/03/2010 2:32 PM CDT) Anatomical Region Laterality Modality Mammography 11/03/2010 4:24 PM CDT Impressions 11/03/2010 4:47 PM CDT The above findings of bone mineral density are consistent with osteoporosis. There is a significant increased fracture risk. WORLD HEALTH ORGANIZATION DEFINITIONS OSTEOPENIA = -1 to -2.5 SD BELOW T SCORE. OSTEOPOROSIS = Less than -2.5 SD BELOW T SCORE Narrative 11/03/2010 4:47 PM CDT BONE MINERAL DENSITY STUDY INDICATION: Osteoporosis screening. FINDINGS: (LUMBAR SPINE) The mean bone density for the lumbar spine L1-L4 is 0.872 g/cm2. This is -2.6 standard deviations (SD) below the mean for the young adult age group (T-Score) and -1.9 standard deviations below the mean for the age-matched control group (Z-Score). (HIP) The mean bone density for the total mean hips is 0.912 g/cm2. This is -0.8 standard deviations (SD) below the mean for the young adult age group (T-Score) and -0.2 standard deviations below the mean for the age-matched control group (Z-Score). Procedure Note Lili Obrien MD - 11/03/2010 BONE MINERAL DENSITY STUDY INDICATION: Osteoporosis screening. FINDINGS: (LUMBAR SPINE) The mean bone density for the lumbar spine L1-L4 is 0.872 g/cm2. This is -2.6 standard deviations (SD) below the mean for the young adult age group (T-Score) and -1.9 standard deviations below the mean for the age-matched control group (Z-Score). (HIP) The mean bone density for the total mean hips is 0.912 g/cm2. This is -0.8 standard deviations (SD) below the mean for the young adult age group (T-Score) and -0.2 standard deviations below the mean for the age-matched control group (Z-Score). IMPRESSION The above findings of bone mineral density are consistent with osteoporosis. There is a significant increased fracture risk. WORLD HEALTH ORGANIZATION DEFINITIONS OSTEOPENIA = -1 to -2.5 SD BELOW T SCORE. OSTEOPOROSIS = Less than -2.5 SD BELOW T SCORE Radha Wiley DO DEXA ORDERABLES from Last 3 Months or Most Recently Relevant to Health Maintenance Care Teams Motor Vehicle Parts Interpreter Relationship Specialty [place] [id number] [id number] PCP - General Internal Medicine 02/23/20
--- OUTSIDE RECORDS SUMMARY | 2024-07-12 09:48 | XMS_ITS | Clinical Summary ---
[facility] Address [address] [place] [address] Care Team Providers Care Leadership Coach Name Role Phone Jesus Navarro MD Primary Care Provider [phone] Allergies Active Allergy Reactions Criticality Noted Date [...] 04/04/2018 Assessment & Plan (04/04/2018 3:23 PM AVIATION NEUROPSYCHOLOGIST): The patient is a 62-year-old female who complains of vertigo with head or eye movement. Her MRI has been unremarkable. I am going to send her for vestibular testing. We will refer her to the [facility] physical therapy department for vestibular testing and [...] 02/02 Assessment & Plan (04/04/2018 3:21 PM AVIATION NEUROPSYCHOLOGIST): We discussed today that she persists in having headaches. When increase her nortriptyline to 50 mg at bedtime. We discussed side effect profile. Assessment & Plan (03/02/2018 4:41 PM AVIATION NEUROPSYCHOLOGIST): At this time the patient is broken [...] up on her headache. Mild intermittent asthma Surgical History Surgery Date Site/Laterality Comments APPENDECTOMY BREAST SURGERY Breast Biopsy TUBAL LIGATION SECTION Medical History Medical History Date Comments GERD (gastroesophageal reflux disease) Headache Depression Arthritis High cholesterol Family History Medical History Relation Name Comments Coronary artery disease Brother 1 Troy CABG Diabetes Brother 1 Troy Coronary artery disease Brother 2 Bruno CABG Alcohol abuse Brother 3 Tuberculosis Brother 4 Cancer Father lung Diabetes Mother Thyroid disease Mother Relation Name Status Comments Brother 1 Troy Brother 2 Bruno Alive Brother 3 (Age 64) drown, Eto h Brother 4 Father Mother Social History Tobacco Use Types Packs/Day Years [...] on file Legal Sex Female 5:05 PM AVIATION NEUROPSYCHOLOGIST Gender Identity Not on file Sexual Orientation Not on file Obstetrics History Last Filed Vital Signs Vital Sign Reading Time Taken Comments Blood Pressure 122/82 04/04/2018 2:58 PM AVIATION NEUROPSYCHOLOGIST Pulse 106 04/04/2018 2:58 PM AVIATION NEUROPSYCHOLOGIST Temperature - - Respiratory Rate 16 04/04/2018 2:58 PM AVIATION NEUROPSYCHOLOGIST Oxygen Saturation - - Inhaled Oxygen Concentration - - Weight 75.8 kg (167 lb) 04/04/2018 2:58 PM AVIATION NEUROPSYCHOLOGIST Height 157.5 cm (5' 2 ) 04/04/2018 2:58 PM AVIATION NEUROPSYCHOLOGIST Body Mass Index 30.54 04/04/2018 2:58 PM AVIATION NEUROPSYCHOLOGIST Plan of Treatment Not on file Insurance June MICK P[place]K [id number] [facility] CHOICE PLUS [facility] HMO/PPO Address: [address] [address] [place] [address] [place] [phone] [facility] MEDICARE ADVANTAGE [facility] Address: [address] [address] [place] [address] [place] [address] Care Teams Leadership Coach Relationship Specialty [place] [id number] [address] PCP - General Internal Medicine 04/17/21
[2024-07-12 19:05] LABS: Alanine Aminotransferase 17 U/L (6-35); Albumin Level 4.4 g/dL (3.5-5.1); Alkaline Phosphatase 49 U/L (38-126); Anion Gap 12 mmol/L (4-12); Aspartate Amino Transferase 45 U/L (14-36); Bilirubin,Total 0.6 mg/dL (0.2-1.3); Blood Urea Nitrogen 16 mg/dL (7-17); Carbon Dioxide 27 mmol/L (22-30); Chloride 104 mmol/L (98-107); Cholesterol 205 mg/dL (0-200); Estimated Glomerular Filt Rate > 60; Glucose 114 mg/dL (65-110); HDL Direct 53 mg/dL; Potassium 4.8 mmol/L (3.4-5.0); Sodium 143 mmol/L (137-145); Triglycerides 307 mg/dL (<150)
[2024-07-12 19:08] LABS: Creatinine Urine 114.4 mg/dL
[2024-07-12 19:12] LABS: MALB Creatinine Ratio 5.6 mg/g (0-30); Microalbumin Urine Random 6.4 mg/L (0-16.7)
[2024-07-12 19:16] LABS: LDL Cholesterol Direct 93 mg/dL
[2024-07-12 21:06] LABS: Hemoglobin A1C 6.4 % (<5.7)
== END 2024-07-12 09:12 | disposition home or self-care (01) ==
LOC: ANHBWCLAB 09:12
PROVIDERS: PCP Nurse Practitioner Adult Health; Visit Provider Nurse Practitioner Adult Health
DX: E11.9 Type 2 diabetes mellitus without complications (principal)
CPT/HCPCS: 36415; 80053; 80061; 82043; 82565; 83036

== ENCOUNTER 2025-01-01 01:38 | Day surgery (SDC) | payer MEDICARE, SELFPAY ==
[2024-12-21 15:37] VITALS: BMI 30.2
--- NOTE | 2024-12-22 16:04 | PC.NURSE ---
LEFT message on voicemail for PATIENT as requested regarding medication Plavix. _message left that the last dose is to be taken on 12/24/2024 and the Endoscopist will instruct them when to restart after the procedure.
--- OUTSIDE RECORDS SUMMARY | 2025-01-01 01:51 | XMS_ITS | Clinical Summary ---
[facility] Organization [facility] Address [address] [place] [address] Care Team Providers Care Freezer Operator Name Role Phone Jesus Navarro MD Primary Care Provider [phone] Allergies Active Allergy Reactions Criticality Noted Date [...] 04/04/2018 Assessment & Plan (04/04/2018 3:23 PM ELECTROENCEPHALOGRAPHIC TECHNOLOGIST): The patient is a 62-year-old female who complains of vertigo with head or eye movement. Her MRI has been unremarkable. I am going to send her for vestibular testing. We will refer her to the [facility] physical therapy department for vestibular testing and [...] 02/02 Assessment & Plan (04/04/2018 3:21 PM ELECTROENCEPHALOGRAPHIC TECHNOLOGIST): We discussed today that she persists in having headaches. When increase her nortriptyline to 50 mg at bedtime. We discussed side effect profile. Assessment & Plan (03/02/2018 4:41 PM ELECTROENCEPHALOGRAPHIC TECHNOLOGIST): At this time the patient is broken [...] on file Legal Sex Female 5:05 PM ELECTROENCEPHALOGRAPHIC TECHNOLOGIST Gender Identity Not on file Sexual Orientation Not on file Obstetrics History Last Filed Vital Signs Vital Sign Reading Time Taken Comments Blood Pressure 122/82 04/04/2018 2:58 PM ELECTROENCEPHALOGRAPHIC TECHNOLOGIST Pulse 106 04/04/2018 2:58 PM ELECTROENCEPHALOGRAPHIC TECHNOLOGIST Temperature - - Respiratory Rate 16 04/04/2018 2:58 PM ELECTROENCEPHALOGRAPHIC TECHNOLOGIST Oxygen Saturation - - Inhaled Oxygen Concentration - - Weight 75.8 kg (167 lb) 04/04/2018 2:58 PM ELECTROENCEPHALOGRAPHIC TECHNOLOGIST Height 157.5 cm (5' 2) 04/04/2018 2:58 PM ELECTROENCEPHALOGRAPHIC TECHNOLOGIST Body Mass Index 30.54 04/04/2018 2:58 PM ELECTROENCEPHALOGRAPHIC TECHNOLOGIST Plan of Treatment Not on file Insurance June M[place] [id number] [facility] [address] [facility] [place] [address] Care Teams Freezer Operator Relationship Specialty [place] [id number] [address] PCP - General Internal Medicine 04/17/21
--- OUTSIDE RECORDS SUMMARY | 2025-01-01 01:51 | XMS_ITS | Clinical Summary ---
Author Organization [facility] Address [address] [place] [address] Care Team Providers Care Manager Ccu Name Role Phone Jesus Navarro MD Primary Care Provider [phone] Source Comments [facility],non-owned Affiliates and Associated Physician Practices is amultiple site organization consisting of ambulatory clinics and hospital sitesin [place], [place], [place] and [place]. This disclosure is being madepursuant to the Care Everywhere program and may not contain all information available regarding this patient. Last updated 18.[facility] Allergies Active Allergy Reactions Criticality Noted Date Comments Codeine Urticaria 10/30/2010 Propoxyphene N-Apap Urticaria 10/30/2010 Propoxyphene Swelling 10/30/2010 Pentazocine Urticaria 10/30/2010 Medications * Be aware that medications may not be up to date on this document. Alwaysverify current medications with the patient. Venlafaxine HCl (EFFEXOR XR PO) Take by mouth. Active montelukast (SINGULAIR) 10 MG tablet 6 Active naproxen sodium (ALEVE) 220 MG tablet Take 220 mg by mouth 2 times daily Active pantoprazole EC (PROTONIX) 20 MG tablet Take 20 mg by mouth once daily Active DULoxetine (CYMBALTA) 30 MG capsule Take by mouth once daily 7 Active lansoprazole (PREVACID) 15 MG capsule Take 15 mg by mouth daily before breakfast Active lovastatin (MEVACOR) 40 MG tablet Take 40 mg by mouth at bedtime Active clobetasol (TEMOVATE) 0.05 % creamIndication s:Acute vulvitis Apply to affected area 2 times daily 60 g 1 9 Active clobetasol (TEMOVATE) 0.05 % cream Apply to affected area 2 times daily 60 g 5 0 Active Active Problems Problem Noted Date Diagnosed [...] = 0.6 oz pur e alcohol) social Comments No Sex and Gender Information Value Date Recorded Sex Assigned at Not on file Legal Sex Female 6:06 AM CARD CHECKER Gender Identity Not on file Sexual Orientation Not on file 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 Not on file Not on fi le Not on file Last Filed Vital Signs Vital Sign Reading Time Taken Comments Blood Pressure 134/86 03/10/2019 9:31 AM CARD CHECKER Pulse 86 02/10/2016 9:18 AM CDT Temperature 36.3 C (97.4 F) 02/10/2016 8:59 AM CDT Respiratory Rate 17 02/10/2016 9:18 AM CDT Oxygen Saturation 95% 02/10/2016 9:18 AM CDT Inhaled Oxygen Concentration - - Weight 79.4 kg (175 lb) 03/10/2019 9:31 AM CARD CHECKER Height 158.8 cm (5' 2.5) 03/10/2019 9:31 AM CARD CHECKER Body Mass Index 31.5 03/10/2019 9:31 AM CARD CHECKER Plan of Treatment Health Maintenance Due Date Last Done Comments [place] (AGES 45-75) - COLON CA SCREENING 1955 CT COLONOGRAPHY - COLON CA SCREENING 1955 FIT - COLON CA SCREENING 1955 FLEX SIG - COLON CA SCREENING 1955 HEPATITIS C SCREENING 10/03/1974 DTAP/TDAP/TD VACCINES (1 - Tdap) 10/08/1975 PNEUMOCOCCAL VACCINE 50+ (1 of 1 - PCV) 2006 ZOSTER VACCINE (1 of 2) 2006 SCREENING FOR DIABETES 09/06/2018 MAMMOGRAM 01/18/2020 01/17/2018, 09/0 08/2016, 12/20/2015, Additional history exists DEPRESSION SCREENING 04/19/2024 COVID-19 VACCINE (1 - season) 2024 INFLUENZA VACCINE (#1) 2024 COLON MONITORING 02/09/2026 02/10/2016, 02/10/2016 COLONOSCOPY - [...] if suspicious findings are present clinically. An [employer] certified facility. [facility] utilize [employer] as a reminder system to notify patients of their next recommended mammograms. Your patient recently completed a breast cancer risk assessment survey. Based on the information provided by your patient, it appears that she may be at increased risk to have a hereditary form of breast cancer. The [employer] recommends MRI screening in addition [...] not hesitate to contact us at . [facility] utilizes [employer] as a reminder system to notify patients of their next recommended mammogram. Reading Radiologist: Marcelino Honeycutt MD on 01/17/2018 at 2:58 PM Radha Wiley DO MAMMO ORDERABLES Final Result * ENDOSCOPY, COLON, SCREENING (02/10/2016 8:05 AM CDT) Report Endoscopy POC _ Patient Name: Ree Jackson Procedure Date: 02/10/2016 8:05 AM Date of : 1955 Admit Type: Outpatient Age: 60 Gender: Female Attending MD: Morgan Mcfadden MD _ Procedure: Colonoscopy Indications: This is [...] by the physician, the nurse and the tobacco drummer in the procedure room. Mental Status Examination: [...] diet indefinitely. Procedure Code(s): --- Professional --- 07698, Colonoscopy, flexible; with biopsy, single or multiple --- Technical --- 52200, Colonoscopy, flexible; with biopsy, single or multiple Diagnosis Code(s): --- Professional --- K62.1, Rectal polyp R19.4, Change in bowel habit K57.30, Diverticulosis of large intestine without perforation or abscess without bleeding --- Technical --- K62.1, Rectal polyp R19.4, Change in bowel habit K57.30, Diverticulosis of large intestine without perforation or abscess without bleeding CPT copyright 2015 [employer]. All rights reserved. The codes documented in this report are preliminary and upon meteorological technician review may be revised to meet current compliance requirements. Dr. Morgan Mcfadden MD Morgan Mcfadden MD 02/10/2016 8:53:47 AM This report has been signed electronically. Number of Addenda: 0 Note Initiated On: 02/10/2016 8:05 AM [facility] 02/10/2016 8:05 AM CDT Morgan Mcfadden MD GI PROCEDURE ORDERABLES Kendell luiz Result - Final [facility] [place] [address] * DEXA BONE DENSITY 2 SITES (11/03/2010 [...] the age-matched control group (Z-Score). Procedure Note Gau, Lili M, MD - 11/03/2010 BONE MINERAL DENSITY STUDY [...] T SCORE Radha Wiley DO DEXA ORDERABLES Final Result from Last 3 Months or Most Recently Relevant to Health [place] [address] [place] [id number] [employer] [place] [id number] Care Teams Manager Ccu Relationship Specialty [place] [id number] [address] PCP - General Internal Medicine 02/23/20
[2025-01-01 07:54] VITALS: BP 138/83; PULSE 92; RESP 18; TEMP 36.9; O2SAT 98
[2025-01-01] MEDS: LACTATED RINGERS 1,000 ML 150 ML IV CONT (08:13)
--- NOTE | 2025-01-01 08:19 | PM.IMHP ---
H&P: HPI History of Present Illness Date/Time: 01/01/25 08:19 Chief Complaint: History of colon polyps - Positive Cologuard test Narrative: The patient has a history of colonic polyps, the last colonoscopy was approximately 5 years ago. Review of Systems Review of Systems: All systems reviewed & are unremarkable except as noted in HPI and below PMFSH Past Medical History Medical History Migraine Headache COPD (chronic obstructive pulmonary disease) Arthritis Asthma Allergies Family History Family History Father Depression Lung cancer History of ETOH abuse Asthma Mother Alzheimer dementia Rectal cancer Diabetes mellitus Heart disease Hypertension Sibling Diabetes mellitus History of ETOH abuse Hypertension Sibling Heart disease Hx of CABG Brother Sibling Stented coronary artery x9 stents. Heart disease Brother Social History Social History Smoking packs per day: 1 Smoking cigarettes per day: 20.0 Years smoked: 30 Smoking pack-years: 30.00 Smoking status: Former smoker Tobacco type: cigarettes Second hand tobacco smoke exposure: No Smoking end date: 04/19/03 Alcohol intake: current Alcohol use details: Wine Social Substance use: never Substance use type: does not use Do You Feel Safe in your Home?: Yes Lack of Transportation: No Lack of Food: Never True Current Housing: I Have Housing Concerned About Future Housing: No Difficulty Paying Gas/Electric Bills: No Difficulty Paying for Meds: No Currently Unemployed: No Education: High School Diploma/GED Difficulty w/ Childcare or Family Care: No Living arrangements: alone Occupation/Education: retired Gender identity (if verbalized by the patient): Female Spiritual care concerns: No Agree to blood products: Yes Meds Home Medications and Allergies Home Medications ?Medication ?Instructions ?Recorded ?Confirmed ?Type albuterol sulfate 90 mcg/actuation 2 inh inhalation Q4-6H PRN 09/01/23 12/21/24 History aerosol inhaler (Ventolin HFA) Shortness Of Breath blood-glucose meter (Blood Glucose #1 ea 09/20/23 11/16/24 Rx Monitoring kit) blood sugar diagnostic (Blood #50 ea 09/22/23 11/16/24 Rx Glucose Test strips) lancets #100 tamela 09/22/23 11/16/24 Rx aspirin 81 mg tablet,delayed 81 mg PO DAILY 12/16/23 12/21/24 History release lansoprazole 15 mg capsule,delayed 15 mg PO BID 01/12/24 12/21/24 History release nitroglycerin 0.4 mg sublingual 0.4 mg sublingual Q5MIN PRN Chest 01/24/24 12/21/24 Rx tablet (Nitrostat) Pain #30 tabs clopidogrel 75 mg tablet 75 mg PO DAILY #90 tabs 02/08/24 01/01/25 Rx bupropion HCl 300 mg 24 hr tablet, 300 mg PO QAM #90 tabs 06/20/24 12/21/24 Rx extended release (Wellbutrin XL) rosuvastatin 40 mg tablet 40 mg PO DAILY #90 tabs 07/24/24 12/21/24 Rx isosorbide mononitrate 30 mg See Rx Instructions .Route 08/11/24 12/21/24 Rx tablet,extended release 24 hr .COMPLEX #30 tabs metoprolol succinate 25 mg See Rx Instructions .Route 08/11/24 12/21/24 Rx tablet,extended release 24 hr .COMPLEX #30 tabs losartan 25 mg tablet See Rx Instructions .Route 10/06/24 12/21/24 Rx .COMPLEX #90 tabs alendronate 70 mg tablet See Rx Instructions .Route 10/10/24 12/21/24 Rx .COMPLEX #12 tabs metformin 500 mg tablet,extended See Rx Instructions .Route 12/11/24 12/21/24 Rx release 24 hr .COMPLEX #90 tabs Allergies Allergy/AdvReac Type Severity Reaction Status Date / Time pentazocine (From Shadia) Allergy Severe Anaphylaxis Verified 01/01/25 07:47 propoxyphene (From Allergy Severe Anaphylaxis Verified 01/01/25 07:47 Darvocet-N) codeine Allergy Unknown Unknown Verified 01/01/25 07:47 Vital Signs Vital Signs - 24 hr 01/01/25 07:54 Temperature 98.4 F Pulse Rate 92 Respiratory Rate 18 Blood Pressure 138/83 Pulse Oximetry 98 Oxygen Delivery Room Air Exam Const: General: cooperative and healthy appearing Resp: Effort & Inspection: normal respiratory effort and able to speak in complete sentences Auscultation: clear to auscultation bilaterally Cardio: Rate: regular rate Rhythm: regular rhythm GI: Inspection: normal to inspection GI Palp: No No hepatosplenomegaly present Auscultation: normal bowel sounds Rectal Exam: deferred Skin: General skin exam: normal color Psych: Appearance: grossly normal Mental Status: mental status grossly normal Assessment and Plan Assessment and plan (1) Screening for colon cancer: Code(s): Z12.11 - Encounter for screening for malignant neoplasm of colon Status: Acute Assessment and Plan: The patient is deemed a good candidate for the procedure. Consent signed. Will proceed.
--- NOTE | 2025-01-01 08:48 | WPDANESEPPF ---
Anes - Initial Pre Proc Eval Procedure: Operation Date: 01/01/25 09:00 Proposed Procedures p Colonoscopy - Anselmo Jarvis MD Date/Time: 01/01/25 08:48 Surgeon: Anselmo Jarvis MD Pre Op Diagnosis: Other fecal abnormalities Patient Data Age: 69 Gender: F Height: 1.57 m Weight: 75.9 kg Last Vital Signs Temp 98.4 F 01/01/25 07:54 Pulse 92 01/01/25 07:54 Resp 18 01/01/25 07:54 BP 138/83 01/01/25 07:54 Pulse Ox 98 01/01/25 07:54 O2 Del Method Room Air 01/01/25 07:54 Allergies Allergy/AdvReac Type Severity Reaction Status Date / Time pentazocine (From Talwin) Allergy Severe Anaphylaxis Verified 01/01/25 07:47 propoxyphene (From Allergy Severe Anaphylaxis Verified 01/01/25 07:47 Darvocet-N) codeine Allergy Unknown Unknown Verified 01/01/25 07:47 Home Medications ?Medication ?Instructions ?Recorded ?Confirmed ?Type albuterol sulfate 90 mcg/actuation 2 inh inhalation Q4-6H PRN 09/01/23 12/21/24 History aerosol inhaler (Ventolin HFA) Shortness Of Breath blood-glucose meter (Blood Glucose #1 ea 09/20/23 11/16/24 Rx Monitoring kit) blood sugar diagnostic (Blood #50 ea 09/22/23 11/16/24 Rx Glucose Test strips) lancets #100 ea 09/22/23 11/16/24 Rx aspirin 81 mg tablet,delayed 81 mg PO DAILY 12/16/23 12/21/24 History release lansoprazole 15 mg capsule,delayed 15 mg PO BID 01/12/24 12/21/24 History release nitroglycerin 0.4 mg sublingual 0.4 mg sublingual Q5MIN PRN Chest 01/24/24 12/21/24 Rx tablet (Nitrostat) Pain #30 tabs clopidogrel 75 mg tablet 75 mg PO DAILY #90 tabs 02/08/24 01/01/25 Rx bupropion HCl 300 mg 24 hr tablet, 300 mg PO QAM #90 tabs 06/20/24 12/21/24 Rx extended release (Wellbutrin XL) rosuvastatin 40 mg tablet 40 mg PO DAILY #90 tabs 07/24/24 12/21/24 Rx isosorbide mononitrate 30 mg See Rx Instructions .Route 08/11/24 12/21/24 Rx tablet,extended release 24 hr .COMPLEX #30 tabs metoprolol succinate 25 mg See Rx Instructions .Route 08/11/24 12/21/24 Rx tablet,extended release 24 hr .COMPLEX #30 tabs losartan 25 mg tablet See Rx Instructions .Route 10/06/24 12/21/24 Rx .COMPLEX #90 tabs alendronate 70 mg tablet See Rx Instructions .Route 10/10/24 12/21/24 Rx .COMPLEX #12 tabs metformin 500 mg tablet,extended See Rx Instructions .Route 12/11/24 12/21/24 Rx release 24 hr .COMPLEX #90 tabs Laboratory Tests 01/01/25 08:12 POC Capillary Glucose 129 H mg/dl (65-105) Patient hx anesthesia problems: none Family hx anesthesia problems: none Results Review: All pre-operative results and documents have been reviewed as part of the pre-operative evaluation. [facility] Past Medical History Medical History Migraine Headache COPD (chronic obstructive pulmonary disease) Arthritis Asthma Allergies Family History Family History Father Depression Lung cancer History of ETOH abuse Asthma Mother Alzheimer dementia Rectal cancer Diabetes mellitus Heart disease Hypertension Sibling Diabetes mellitus History of ETOH abuse Hypertension Sibling Heart disease Hx of CABG Brother Sibling Stented coronary artery x9 stents. Heart disease Brother Social History Social History Smoking packs per day: 1 Smoking cigarettes per day: 20.0 Years smoked: 30 Smoking pack-years: 30.00 Smoking status: Former smoker Tobacco type: cigarettes Second hand tobacco smoke exposure: No Smoking end date: 04/19/03 Alcohol intake: current Alcohol use details: Wine Social Substance use: never Substance use type: does not use Do You Feel Safe in your Home?: Yes Lack of Transportation: No Lack of Food: Never True Current Housing: I Have Housing Concerned About Future Housing: No Difficulty Paying Gas/Electric Bills: No Difficulty Paying for Meds: No Currently Unemployed: No Education: High School Diploma/GED Difficulty w/ Childcare or Family Care: No Living arrangements: alone Occupation/Education: retired Gender identity (if verbalized by the patient): Female Spiritual care concerns: No Agree to blood products: Yes Anes - Eval Final PreProcedure Day of Procedure 01/01/25 08:48 Patient weight: obese Lungs: normal air movement Airway: Mallampati scale class II and special considerations (Missing several upper/lower teeth. ) Neurological: alert and oriented Last oral intake: >/= 8 hours ASA classification: III Emergent: no Anesthetic plan: proceed Anesthesia type and monitoring: general GIVS and standard monitoring Results Review: All pre-operative results and documents have been reviewed as part of the pre-operative evaluation. HTN, hyperlipidemia, PTCA 2023, ex smoker, quit 2003. COPD and stable of recent. Informed Consent: The patient's anesthetic plan and its attendant risks and benefits were discussed with the patient/family/POA. Questions were solicited and answers provided to the satisfaction of the patient/family/POA.
--- NOTE | 2025-01-01 09:19 | S_PTH ---
PATIENT: Ree Jackson LOC: [facility] Haas#:[id number] AGE/SX: 69/F ROOM: RE01/01/[address]: Anselmo Jarvis MD : 1955 BED: DIS: 01/01/2025 SPEC #: [id number] RECD: 01/01/25 09:50 STATUS: LO REQ #: [id number] ROLANDO: 01/01/25 09:[address]: Anselmo Jarvis DEPT: [facility] Surgical RECD BY: Isha Thompson ENTERED: 01/01/25 09:52 SP TYPE: Surgical OTHR DR: Shilpa Covarrubias APRN Tissues: A - Colon Polypectomy Procedures: Hematoxylin and Eosin Stain Gross and Microscopic Level 4
[2025-01-01 09:21] VITALS: BP 98/43; PULSE 83; RESP 20; O2SAT 99
[2025-01-01 09:31] VITALS: BP 116/57; PULSE 81; RESP 21; O2SAT 97
[2025-01-01 09:41] VITALS: BP 134/67; PULSE 76; RESP 16; O2SAT 99
== END 2025-01-01 09:53 | disposition home or self-care (01) ==
PROVIDERS: PCP Nurse Practitioner Adult Health; Referring Provider Nurse Practitioner Adult Health; Visit Provider Internal Medicine Gastroenterology
PROC: 0DJD8ZZ Inspection of Lower Intestinal Tract, Via Natural or Artificial Opening Endoscopic (ICD-10-PCS; CPT 45378; principal; 2025-01-01 09:00)
DX: Z12.11 Encounter for screening for malignant neoplasm of colon (principal); D12.8 Benign neoplasm of rectum; K64.8 Other hemorrhoids; K57.30 Diverticulosis of large intestine without perforation or abscess without bleeding; I10 Essential (primary) hypertension; E78.5 Hyperlipidemia, unspecified; J44.9 Chronic obstructive pulmonary disease, unspecified; M19.90 Unspecified osteoarthritis, unspecified site; E66.9 Obesity, unspecified; Z68.30 Body mass index [BMI] 30.0-30.9, adult; Z79.51 Long term (current) use of inhaled steroids; Z79.82 Long term (current) use of aspirin; Z79.02 Long term (current) use of antithrombotics/antiplatelets; Z79.83 Long term (current) use of bisphosphonates; Z79.84 Long term (current) use of oral hypoglycemic drugs; Z98.890 Other specified postprocedural states; Z87.891 Personal history of nicotine dependence; Z80.1 Family history of malignant neoplasm of trachea, bronchus and lung; Z80.0 Family history of malignant neoplasm of digestive organs; Z82.49 Family history of ischemic heart disease and other diseases of the circulatory system
CPT/HCPCS: 45385; 82948; 88305; J2704; J7120

== ENCOUNTER 2025-01-22 09:13 | Outpatient (CLI) | payer MEDICARE, SELFPAY ==
--- OUTSIDE RECORDS SUMMARY | 2024-02-27 07:51 | XMS_ITS | Continuity of Care Document ---
Author Organization [facility] Address [address] [place] [address] Phone Care Team Providers Care Emt Dispatcher Name Role Phone Jolanta Massey Unavailable Unavailable Allergies, Adverse Reactions, Alerts Substance Reaction Status Criticality jodi Mcgee Active No Information Medications Medication Instructions Dosage Effective Dates (start - stop) Status Comments duloxetine 60 mg capsule,delayed release take 1 capsule by oral route every day 60 MG - Active lovastatin 40 mg tablet take 1 tablet by oral route every day - Active montelukast 10 mg tablet take 1 tablet by oral route every day in the evening 10 MG - Active albuterol sulfate HFA 90 mcg/actuation aerosol inhaler inhale 2 puff by inhalation route every 4 hours as needed 2 puff - Active lansoprazole 15 mg capsule,delayed release take 1 capsule by oral route every day - Active Rexulti 1 mg tablet take 1 tablet by ora l route every day 1 MG - Active Procedures Procedure Date FALL RISK ASSESSMENT DOC'D PRES/ABSN URINE INCON ASSESS Pt inelig neg scrn depres GENERAL HEALTH PANEL LIPID PANEL VITAMIN B12 (SERUM) VITAMIN D, 25-HYDROXY ROUTINE VENIPUNCTURE HEMOGLOBIN A1C HGA1C, GLYCO EKG (ELECTROCARDIOGRAM) PREVENTATIVE-EST: 65 & OVER BODY MASS INDEX DOCD SYST BP GE 130 - 139MM HG DIAST BP 80-89 MM HG GENERAL HEALTH PANEL LIPID PANEL ROUTINE VENIPUNCTURE Pt inelig neg scrn depres PREVENTATIVE-EST: 40-64 BODY MASS INDEX DOCD SYST BP GE 130 - 139MM HG DIAST BP 80-89 MM HG CBC, INC PLATELETS AND DIFFERENTIAL COMPREHEN METABOLIC PANEL CMP 0 LIPID PANEL URINALYSIS, DIPSTICK (UA) - Office Lab N ROUTINE VENIPUNCTURE HEMOGLOBIN A1C HGA1C, GLYCO LDL-CHOLESTEROL, DIRECT PREVENTATIVE-EST: 40-64 BODY MASS INDEX DOCD SYST BP GE 130 - 139MM HG DIAST BP 80-89 MM HG Advance Directives Directive Yes / No Effective Date File Name Life Support Not Answered N/A N/A Intubation Not Answered N/A N/A Antibiotics Not Answered N/A N/A IV Fluid Support Not Answered N/A N/A Tube Feed Not Answered N/A N/A Other Directive N/A N/A WARNING:The information contained in this section is historical and is provided for information only and does not constitute a legal document or any assurance that the information is still accurate. Please verify the information with the verdugo of the legal document before using it for clinical purposes. Encounters Encounter Description Practice Location Reason(s) For Visit Diagnoses Date Provider Providers Copied on Encounter [facility], [address], [place], [place], [address] , [place] tel: [phone] [facility] No Information 4 Alfonzo Stover. [address], [address], [place], [place], [address], [place]. tel:[phone] [facility], [address], [place], [place], [address] , [place] tel: [phone] [facility] No Information 3 Ramon Lee. [address] [place] [address], [address] , [place], [place], [address], . tel:[phone] PREVENTATIVE -EST: 65 & OVER [facility], [address], [place], [place], [address] , tel:[phone] [facility] preventive exam (chief complaint)C hronic Conditions (chief complaint)c hronic conditions (chief complaint) Body mass index [BMI] 31.0-31.9, adultEncounter for general adult medical examination without abnormal findingsMixed hyperlipidemiaGas troesophageal reflux disease without esophagitisMild episode of recurrent major depressive disorderClass 1 obesity due to excess calories with serious comorbidity and body mass index (BMI) of 31.0 to 31.9 in adultChest pressureOther fatigueElevated glucose 3 Alfonzo Stover. [address] [place] [address], [address] , [place], [place], [address], . tel:[phone] Referring Provider: Jesus Navarro, [address] [place] [address] [address] , [place], [address] . tel:[phone] PREVENTATIVE -EST: [address] [facility], [address], [place], [place], [address] , tel:[phone] [facility] Chronic Conditions (chief complaint) Encounter for annual health examinationObesit y (BMI 30.0-34.9)Hyperli pidemia, unspecified hyperlipidemia typeMild intermittent asthma, unspecified whether complicatedChroni c fatigueScreening for breast cancerBody mass index [BMI] 32.0-32.9, adultDyspnea on exertion 1 Ramon Lee. [address] [place] [address], [address] , [place], [place], [address], . tel:[phone] Referring Provider: Jesus Navarro [address] [place] [address] [address] , [place], [address] . tel:[phone] PREVENTATIVE -EST: 40-64 [facility], [address], [place], [place], [address] , tel:[phone] [facility] preventive exam (chief complaint)C hronic Conditions (chief complaint) Body mass index (BMI) 32.0-32.9, adultEnckaiser foundation hospitaler for preventive health examinationMixed hyperlipidemiaGas troesophageal reflux disease without esophagitisMood swingsMigraine without aura and without status migrainosus, not intractableElevat ed glucose level 0 Alfonzo Stover. [address], [address], [place], [place], [address], [place]. tel:[phone] Referring Provider: Jesus Navarro, [address] [facility] [address], [place], [address] . tel:[phone] [facility], [address], [place], [place], [address] , [place] tel:[phone] [facility] Physical examNeck painElevated BP without diagnosis of hypertension 8 Timothy Pation. [address] [place], [place], [address], [place]. tel:[phone] Referring Provider: Sukumar Aguirre [address] [place] [address], [address] . tel:[phone] [facility], [address], [place], [place], [address] , [place] tel:[phone] [facility] VertigoSOB (shortness of breath) on exertionNonintrac table headache, unspecified chronicity pattern, unspecified headache typeMild depression 8 Timothy Patino. [address] [place], [place], [address], [place]. tel:[phone] Referring Provider: Sukumar Aguirre, [address] [place] [address], [address] . tel:[phone] [facility], [address], [place], [place], [address] , [place] tel:[phone] [facility] Physical examHyperlipidemi a, unspecifiedObesit y, unspecified obesity severity, unspecified obesity typeMigraine, unspecified, not intractable, without status migrainosusMood disorder 7 Aguirre Sukumar. [address] [place], [place], [address], [place]. tel:[phone] Referring Provider: Sukumar Aguirre, [address] [facility], [address] . tel:[phone] [employer] [employer], [address], [place], [place], [address] , tel: [phone] [facility] HeadacheDyslipide gaurav 5 Timothy Patino. [address] [facility] [place], [address], [place]. tel:[phone] Referring Provider: Sukumar Aguirre, [address] [place], [address] . tel:[phone] [facility], [address], [place], [place], [address] , [place] tel: [phone] [facility] HeadacheFeverHype rlipidemiaCoughin gMemory lossNausea 5 Timothy Patino. [address] [place], [place], [address], [place]. tel:[phone] Referring Provider: Sukumar Aguirre, [address] [place], [address] . tel:[phone] [employer] [employer], [address], [place], [place], [address] , [place] tel: [phone] [facility] Chest pain, atypicalRight hip painHyperlipidemi a 4 Alfonzo Stover. [address], [address], [place], [place], [address], [place]. tel:[phone] Referring Provider: Sukumar Aguirre, [address] [place], [address] . tel:[phone] [employer] [employer], [address], [place], [place], [address] , [place] tel: [phone] [facility] Preventative health careHyperlipidemi aMood swingsEsophageal refluxMigraineDys pneaRight hip painRoutine Medical ExamGynecological Examination 3 Alfonzo Stover. [address], [address], [place], [place], [address], [place]. [phone] Referring Provider: Sukumar Aguirre, [address] [place] [address], [place], [address] . tel:[phone] [facility], [address], [place], [place], [address] , [place] tel: [phone] [facility] Other and unspecified hyperlipidemiaOth er specified episodic mood disorderEsophagea l refluxMigraine, unspecified without mention of intractable migraine 3 Alfonzo Stover. [address], [address], [place], [place], [address], [place]. tel:[phone] [facility], [address], [place], [place], [address] , [place] tel: [phone] [facility] EPISODIC MOOD DISORD NECESOPHAGEAL REFLUXHYPERLIPIDE GAURAV NEC/NOSLeg cramps 2 No Information [facility], [address], [place], [place], [address] , [place] tel: [phone] [facility] EPISODIC MOOD DISORD NECESOPHAGEAL REFLUXHYPERLIPIDE GAURAV NEC/NOSAtypical neviLeg cramps, sleep relatedChest pain, atypical 2 No Information [facility], [address], [place], [place], [address] , [place] tel: [phone] [facility] Other specified episodic mood disorderOther and unspecified hyperlipidemiaAll ergic rhinitis, cause unspecifiedEsopha geal refluxInsomnia, unspecifiedUnspec ified chest pain 6 1 No Information [facility], [address], [place], [place], [address] , [place] tel: [phone] [facility] NONSPECIF SKIN ERUPT NECHERPES ZOSTER NOS 0200 [address] [facility]. [address], [place], [address], [place]. [facility], [address], [place], [place], [address] , [place] tel: [phone] [facility] LONG-TERM USE MEDS NECCHEST PAIN NOSESOPHAGEAL REFLUXDERMATITIS NOSCOUGH Jun- 8 No Information [facility], [address], [place], [place], [address] , [place] tel: [phone] [facility] HYPERLIPIDEMIA NEC/NOSMALAISE AND FATIGUE NEC 8 Alfonzo Stover. [address], [address], [place], [place], [address], [place]. tel:[phone] [facility], [address], [place], [place], [address] , [place] tel: [phone] [facility] EPISODIC MOOD DISORD NEC 4 [facility]. [address], [place], [address], [place]. [facility], [address], [place], [place], [address] , [place] tel: [phone] [facility] DEPRESSIVE DISORDER NEC 4 [facility]. [address], [place], [address], [place]. Family History Family Member Type Diagnosis Age At Onset Father Problem Cancer, lung (Cause Of ) Brother Problem (finding) diabetes melli tus in first degree relative Mother Problem (finding) Thyroid disease Brother Problem (finding) coronary arterioscleros is Mother Problem Congestive heart failure Mother Problem (finding) diabetes melli tus in first degree relative Immunizations Vaccine Date Status Comments Fluzone High-Dose, high dose , preservative free administered Source: Source Unspe cified Pfizer (Bivalent Booster) CO VID Vac, 30mcg/0.3mL, 12+ years administered Source: Sour ce Unspecified Pneumococcal conjugate PCV20 administered Source: Source Unspecified Pfizer (Diluent Reconstitute d) COVID19 Vaccine, 0.3mL per dose, 2 doses, administered 21 days apart administered Note: booster ; Sour ce: Source Unspecified Fluzone High-Dose, high dose , preservative free administered Source: Source Unspe cified Pfizer (Diluent Reconstitute d) COVID19 Vaccine, 0.3mL per dose, 2 doses, administered 21 days apart administered Source: Source Unspe cified Pfizer (Diluent Reconstitute d) COVID19 Vaccine, 0.3mL per dose, 2 doses, administered 21 days apart administered Source: Source Unspe cified Fluzone Quad, preservative free, split virus, 0.5mL dosage administered Source: Other Provider Influenza, seasonal, injecta ble (3 yrs or older) administered Source: Source Unspe cified Tdap administered Source: Source Unspecified Td (adult) preservative free administered Source: Source Unspecified Payers Payer name Insurance type Covered republican ID Authoriza tion(s) [facility] MDCR COMPLETE HMO [id number] Social History Type Description Quantity Date Captured Comments Alcohol Use Details Unknown Caffeine Use Details Unknown Tobacco Use Status No Information Smoking Status No Information Sex Female Sexual Orientation Straight or heterosexual Gender Identity Female Chief Complaint And Reason For Visit No Information Reason For Referral Reason For Referral No Information Plan Of Treatment Date Type Action Status Goal Tobacco cessation counseling completed Goal Dietary manageme nt education, guidance, and counseling completed Goal Dietary manageme nt education, guidance, and counseling completed Goal Dietary manageme nt education, guidance, and counseling completed Goal Tobacco cessation counseling completed Future Order: Lab Order Troponin I ([id number]), Ordered on: Ordered Future Order: Lab Order CBC AUTO DIFF ([id number]), Ordered on: Ordered Future Order: Lab Order Comprehe nsive Metabolic (CMP) ([id number]), Ordered on: Ordered Future Order: Lab Order TSH - Th yroid Stimulating Hormone ([id number]), Ordered on: Ordered History Of Present Illness Encounter Date Complaint History Of Prese nt Illness preventive exam Currently pregna nt: no. : 2. Parity: Term: 2. The patient states using menopausal for control. Patient's menses is absent. Negative for: breast discharge, breast lump(s) and breast pain. Positive for: breast self exam.Postmenopausal: Age: 50, Type: natural. Negative for Hormone replacement therapy. Menopausal symptoms negative for: hot flashes, insomnia, night sweats and vaginal dryness. Associated symptoms include depression. Pertinent negatives include abnormal bleeding (hematology), abnormal vaginal bleeding, anxiety, difficulty falling sleep, dyspareunia, nocturia, sexual dysfunction, sleep disturbances, urinary incontinence, urinary urgency, vaginal discharge and vaginal itching. Diet healthy. Patient reports getting calcium from dietary sources. Patient does not take Vitamin D. Patient does take multivitamins. Patient does not take Folic acid.The patient states Patient's exercise level is sedentary and frequency is 2-3 times/week. The patient no longer uses tobacco. Tobacco cessation has been discussed. The patient has been exposed to passive smoke. The patient has not been exposed to passive vaping. The patient does drink alcohol. Additional information: She is here today to have preventive exam. She is , works for [employer], considering halfway early 2023. She no longer smokes, occasionally drinks wine or beer. She had 2 COVID vaccines and one booster. She had flu vaccine earlier this fall. She had Shingrix in the past as well Prevnar 20. She sees Dr Radha Wiley at [facility] for well woman exams and has mammograms at [facility]. Her colonoscopy was in 2016.. chronic conditions *See Chronic Conditions [facility] Chronic Conditions *See Chronic Conditions [facility] Chronic Conditions *See Chronic Conditions [facility] Chronic Conditions *See Chronic Conditions [facility] preventive exam Currently pregna nt: no. : 2. Parity: Term: 2. The patient states she uses menopausal for control. Her menses is absent. Negative for dysmenorrhea. Negative for: breast discharge, breast lump(s) and breast pain. Positive for: breast self exam.Postmenopausal: Age: 50, Type: natural. Negative for Hormone replacement therapy. Menopausal symptoms negative for: hot flashes, insomnia, night sweats and vaginal dryness. Associated symptoms include depression. Pertinent negatives include abnormal vaginal bleeding, anxiety, difficulty falling sleep, history of infertility, sleep disturbances, urinary incontinence, urinary urgency, vaginal discharge and vaginal itching. Diet healthy. She reports getting 500 mg/day calcium from dietary sources. She does not take Vitamin D. She does not take multivitamins. She does not take Folic acid.The patient states her exercise level is sedentary and frequency is 2-3 times/week. The patient no longer uses tobacco. Tobacco cessation has been discussed. She has not been exposed to passive smoke. She has not been exposed to passive vaping. She does drink alcohol. Additional information: She is here today for a preventive exam. She is works for [employer]. She states she works at home at times, presently is back in the office. She guillermo not smoke, occasionally drinks alcohol. She sees fios line installer- Dr Wiley' for well woman exams- last May 2019. She is due for mammogram. She had colonoscopy in Jan 2016- will have next year. She had flu vaccine, given Shingrix info. Tdap is up to date. . Functional Status Date Functional Assessmen t No Information Instructions Date Instruction Additional Infor mation She is here today to have preventive exam. She is , works for [employer], considering halfway early 2023. She no longer smokes, occasionally drinks wine or beer. She had 2 COVID vaccines and one booster. She had flu vaccine earlier this fall. She had Shingrix in the past as well Prevnar 20. She sees Dr Radha Wiley at [facility] for well woman exams and has mammograms at [facility]. Her colonoscopy was in 2015. Related to Encounter for general adult medical examination without abnormal findings adding hgba1c to labs. Related t o Elevated glucose Checking labs today. further plan of care upon results. Related to Other fatigue Check of EKG today- NSR with rate of 81 and 85 She will monitor and advise of changes. Related to Chest pressure Encouraged to follow low fat diet, increase exercise as able, advise of progress. Related to Class 1 obesity due to excess calories with serious comorbidity and body mass index (BMI) of 31.0 to 31.9 in adult Status: Able to self -manage condition. Goals: Your goal is to manage stress. Barriers: You are not confident you can change your habits. She is given samples of Rexulti 0.5 mg to take daily x 3 weeks, then Rexulti 1 mg tabs to take daily for 1 week. A prescription for Rexulti 1 mg was sent to her pharmacy She will advise of progress in 3 weeks- sooner if any problems Related to Mild episode of recurrent major depressive disorder Continue present jesenia n of care., advise of any changes. Related to Gastroesophageal reflux disease without esophagitis review of labs today , continue diet and exercise. Related to Mixed hyperlipidemia Prescribed activity/ exercise education Related to Body mass index (BMI) 31.0-31.9, adult Disease process Urinary Incontinence Dietary management e ducation, guidance, and counseling Related to Body mass index (BMI) 31.0-31.9, adult Fall Risk Prevention Check labs, consider a home sleep study. Related to Chronic fatigue Go for a mammogram. Related to S creening for breast cancer Follow a low cholest gianna diet and check lipids. Related to Hyperlipidemia, unspecified hyperlipidemia type Consider a CXR and spirometry. R elated to Mild intermittent asthma, unspecified whether complicated Get appropriate vaccines. Relate d to Encounter for annual health examination Continue a healthy d iet, exercise, and weight loss as appropriate. Related to Obesity (BMI 30.0-34.9) Dietary management e ducation, guidance, and counseling Related to Body mass index (BMI) 32.0-32.9, adult Disease process Giving encouragement to exercise Related to Body mass index (BMI) 32.0-32.9, adult She is here today fo r a preventive exam. She is works for [employer]. She states she works at home at times, presently is back in the office. She guillermo not smoke, occasionally drinks alcohol. She sees fios line installer- Dr Wiley' for well woman exams- last May 2019. She is due for mammogram. She had colonoscopy in Jan 2016- will have next year. She had flu vaccine, given [employer] info. Tdap is up to date. Related to Encounter for preventive health examination Noted to have elevat ed glucose on labs, non fasting. Related to Elevated glucose level Continue present jesenia n of care, advise of any changes. Related to Migraine without aura and without status migrainosus, not intractable Continue present jesenia n of care, advise of symptom change. Related to Mood swings Continue present plan of care. R elated to Gastroesophageal reflux disease without esophagitis Labs are drawn for f ollow up of chronic conditions, tries to follow mostly low fat diet. Related to Mixed hyperlipidemia Urinary Incontinence Dietary management e ducation, guidance, and counseling Related to Body mass index (BMI) 32.0-32.9, adult Disease process Prescribed activity/ exercise education Related to Body mass index (BMI) 32.0-32.9, adult Fall Risk Prevention Assessments Type Assessment Date No Information Patient Care Teams Name Effective Dates (start - stop) Status Members No Information
--- OUTSIDE RECORDS SUMMARY | 2025-01-22 09:57 | XMS_ITS | Clinical Summary ---
Author Organization [facility] Address [address] [place] [address] Care Team Providers Care Ink Grinder Name Role Phone Jesus Navarro MD Primary Care Provider [phone] Allergies Active Allergy Reactions Criticality Noted Date [...] 04/04/2018 Assessment & Plan (04/04/2018 3:23 PM CHEMICAL ETCH OPERATOR): The patient is a 62-year-old female who complains of vertigo with head or eye movement. Her MRI has been unremarkable. I am going to send her for vestibular testing. We will refer her to the [facility] physical therapy department for vestibular testing and [...] 02/02 Assessment & Plan (04/04/2018 3:21 PM CHEMICAL ETCH OPERATOR): We discussed today that she persists in having headaches. When increase her nortriptyline to 50 mg at bedtime. We discussed side effect profile. Assessment & Plan (03/02/2018 4:41 PM CHEMICAL ETCH OPERATOR): At this time the patient is broken [...] on file Legal Sex Female 5:05 PM CHEMICAL ETCH OPERATOR Gender Identity Not on file Sexual Orientation Not on file Obstetrics History Last Filed Vital Signs Vital Sign Reading Time Taken Comments Blood Pressure 122/82 04/04/2018 2:58 PM CHEMICAL ETCH OPERATOR Pulse 106 04/04/2018 2:58 PM CHEMICAL ETCH OPERATOR Temperature - - Respiratory Rate 16 04/04/2018 2:58 PM CHEMICAL ETCH OPERATOR Oxygen Saturation - - Inhaled Oxygen Concentration - - Weight 75.8 kg (167 lb) 04/04/2018 2:58 PM CHEMICAL ETCH OPERATOR Height 157.5 cm (5' 2) 04/04/2018 2:58 PM CHEMICAL ETCH OPERATOR Body Mass Index 30.54 04/04/2018 2:58 PM CHEMICAL ETCH OPERATOR Plan of Treatment Not on file Insurance [place] [id number] [facility] [place] [phone] [facility] [place] [address] Care Teams Ink Grinder Relationship Specialty [place] [address] [address] PCP - General Internal Medicine 04/17/21
--- OUTSIDE RECORDS SUMMARY | 2025-01-22 09:57 | XMS_ITS | Clinical Summary ---
Author Organization [facility] Address [address] [place] [address] Care Team Providers Care Bulldozer/Loader/Compactor/Scraper Name Role Phone Jesus Navarro MD Primary Care Provider [phone] Source Comments [facility],non-owned Affiliates and Associated Physician Practices is amultiple site organization consisting of ambulatory clinics and hospital sitesin [place], [place] and [place]. This disclosure is being madepursuant to the Care Everywhere program and may not contain all information available regarding this patient. 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 Not on file Not on fi le Not on file Last Filed Vital Signs Vital Sign Reading Time Taken Comments Blood Pressure 134/86 03/10/2019 9:31 AM FAMILY DAY CARE PROVIDER Pulse 86 02/10/2016 9:18 AM CDT Temperature 36.3 C (97.4 F) 02/10/2016 8:59 AM CDT Respiratory Rate 17 02/10/2016 9:18 AM CDT Oxygen Saturation 95% 02/10/2016 9:18 AM CDT Inhaled Oxygen Concentration - - Weight 79.4 kg (175 lb) 03/10/2019 9:31 AM FAMILY DAY CARE PROVIDER Height 158.8 cm (5' 2.5) 03/10/2019 9:31 AM FAMILY DAY CARE PROVIDER Body Mass Index 31.5 03/10/2019 9:31 AM FAMILY DAY CARE PROVIDER Plan of Treatment Health Maintenance Due Date [...] if suspicious findings are present clinically. An [employer] certified facility. [facility] utilize [facility] as a reminder system to notify patients of their next recommended mammograms. Your patient recently completed a breast cancer risk assessment survey. Based on the information provided by your patient, it appears that she may be at increased risk to have a hereditary form of breast cancer. The [employer] recommends MRI screening in addition [...] not hesitate to contact us at . [facility] utilizes [employer] as a reminder system to notify patients [...] by the physician, the nurse and the barratte operator in the procedure room. Mental Status Examination: [...] diet indefinitely. Procedure Code(s): --- Professional --- 45899, Colonoscopy, flexible; with biopsy, single or multiple --- Technical --- 09115, Colonoscopy, flexible; with biopsy, single or multiple Diagnosis Code(s): --- Professional --- K62.1, Rectal polyp R19.4, Change in bowel habit K57.30, Diverticulosis of large intestine without perforation or abscess without bleeding --- Technical --- K62.1, Rectal polyp R19.4, Change in bowel habit K57.30, Diverticulosis of large intestine without perforation or abscess without bleeding CPT copyright 2015 [employer]. All rights reserved. The codes documented in this report are preliminary and upon wringer operator review may be revised to meet current compliance requirements. Dr. Morgan Mcfadden MD Morgan Mcfadden MD 02/10/2016 8:53:47 AM This report has been signed electronically. Number of Addenda: 0 Note Initiated On: 02/10/2016 8:05 AM [facility] 02/10/2016 8:05 AM CDT Morgan Mcfadden MD GI PROCEDURE ORDERABLES Kendell luiz Result - Final [facility] [place] [place] [address] * DEXA BONE DENSITY 2 SITES (11/03/2010 [...] Most Recently Relevant to Health Maintenance Insurance [facility] UHC MANAGED MEDICARE ADV SELF PAY NO INSURANCE Member Subscriber Plan / Payer (Ef fective for All Dates) Name:Ree Jackson Member ID:Not on file Relation to Subscriber:Not on file Name:REE JACKSON Subscriber ID:Not on file (Home) Address: [place] [address] Payer ID:Not on file Group ID:Not on file Type:Self Pay Address: [place], [place] [address] Care Teams Bulldozer/Loader/Compactor/Scraper Relationship Specialty [place] [address] [address] PCP - General Internal Medicine 02/23/20
[2025-01-22 18:34] LABS: Alanine Aminotransferase 22 U/L (6-35); Albumin Level 4.5 g/dL (3.5-5.1); Alkaline Phosphatase 45 U/L (38-126); Anion Gap 7 mmol/L (4-12); Aspartate Amino Transferase 57 U/L (14-36); Bilirubin,Total 0.5 mg/dL (0.2-1.3); Blood Urea Nitrogen 19 mg/dL (7-17); Calcium 9.6 mg/dL (8.4-10.2); Carbon Dioxide 26 mmol/L (22-30); Chloride 107 mmol/L (98-107); Cholesterol 162 mg/dL (0-200); Estimated Glomerular Filt Rate > 60; Glucose 137 mg/dL (65-110); HDL Direct 55 mg/dL; Potassium 5.0 mmol/L (3.4-5.0); Sodium 140 mmol/L (137-145); Total Protein 7.5 g/dL (6.3-8.2); Triglycerides 269 mg/dL (<150)
[2025-01-22 18:38] LABS: Hemoglobin A1C 6.9 % (<5.7)
[2025-01-22 18:47] LABS: MALB Creatinine Ratio 8.9 mg/g (0-30)
== END 2025-01-22 09:14 | disposition home or self-care (01) ==
PROVIDERS: PCP Nurse Practitioner Adult Health; Visit Provider Nurse Practitioner Adult Health
DX: R07.89 Other chest pain (principal); I10 Essential (primary) hypertension; E11.9 Type 2 diabetes mellitus without complications
CPT/HCPCS: 36415; 80053; 80061; 82043; 82565; 83036